=== PATIENT | male | born 1955 | race Caucasian/White ===

== ENCOUNTER → 2018-02-25 | Outpatient (CLI) | payer BC ==
--- NOTE | 2018-02-25 17:16 | CONS ---
CONSULTATION Consultation note for sleep apnea. HISTORY: 62-year-old male patient diagnosed having obstructive sleep apnea through a Sleep Center in [place], [place] and the patient was given a CPAP machine. The patient is coming in for re-evaluation. The patient treatment itself has become suboptimal as the patient is feeling fatigued and tired and he has snoring at night despite his CPAP therapy. I checked his machine and the patient has older generation REM Star Plus M CPAP unit that was given to him back in 2009. He has been utilizing an AirFit P10 nose pillow medium size. His current CPAP pressure is at 13.5 cm of water. His current [place] score is 9. He denies having any significant weight gain over the past 1 year. He is currently weighing around 345 pounds. I do not have documentation on the original sleep study. I am going to request this from the sleep center and from his primary care physician from [place], [place]. Obviously the patient needs another CPAP titration to make adjustment on CPAP pressure and update his CPAP machine. If the originally sleep study is not available, he will need also a baseline HST to document presence of sleep apnea. Note that he is waking up tired. He has trouble paying attention and falling asleep during the day. He goes to bed around 10 to 11:00 p.m. and gets out of bed around 8 to 9:00 am in the morning. He is averaging somewhere between 7-9 hours of sleep every night. He is currently retired. PAST MEDICAL HISTORY: 1. Obstructive sleep apnea details discussed above. 2. Previous history of left lower extremity DVT and pulmonary embolism. The patient had saddle pulmonary embolism and is on anticoagulation. 3. History of renal cell carcinoma with previous nephrectomy. 4. Obesity. PAST SURGICAL HISTORY: Includes right nephrectomy for cancer. Right knee surgery x2, ankle surgery, removal of benign mass from the sphenoid sinus, L2-L3 laminectomy, left hip replacement. SOCIAL HISTORY: The patient is a nonsmoker. No history of alcohol. No history of IV drugs. DRUG ALLERGIES: To SULFA, ATORVASTATIN AND SULFASALAZINE. OUTPATIENT MEDICATION LIST: Includes vitamin D, vitamin B12. He was on modafinil, which is currently on hold and he was given on as needed basis Modafinil for residual hypersomnia related to his obstructive sleep apnea. He is on Eliquis 5 mg twice a day. Cartia XT 180 mg p.o. daily and Prozac 40 mg p.o. daily. FAMILY HISTORY: Noncontributory. Negative for sleep apnea. REVIEW OF SYSTEMS: Chronic fatigue and sleepiness despite being on CPAP therapy and the patient has been treated with modafinil in the past. He has no insomnia, no choking or gasping for air. No nocturia. No grinding of the teeth. No sleepwalking and he has no dry mouth. No anxiety or panic attacks. No palpitation or heartburn. No anxiety. He has history of depression. His BP is 124/65, pulse 68, respirations 16, temperature 97.4 saturation 96% on room air. Height is 5 feet 11 inches, weight 315, neck size 20 inches and BMI is 42.9. GENERAL APPEARANCE: Calm, comfortable. No acute distress. Head is atraumatic, normocephalic. NECK: Supple. There is no JVD. No goiter or neck masses. He has got a Mallampati class IV. LUNGS: Diminished breath sounds bilaterally otherwise clear. HEART: Sounds regular rhythm. Normal S1, S2. No S3, S4. No murmurs. ABDOMEN: Soft, nontender. No organomegaly. EXTREMITIES: No edema. No cyanosis or clubbing at this point. SKIN: Negative for any wounds or ulceration. IMPRESSION: 1. Obstructive sleep apnea. The patient is coming in for re-evaluation. The baseline severity of his sleep breathing disorder is not known. Never the less, the patient has been treated with a CPAP pressure of 13.5 cm of water and his treatment has been suboptimal as the patient has significant residual hypersomnia and sleepiness. 2. Hypersomnia, [place] score of 9. 3. Obesity with a BMI of 42.9. 4. Deep venous thrombosis/pulmonary embolism on anticoagulation. 5. History of renal cell carcinoma with previous nephrectomy. PLAN: 1. Encourage further weight loss. 2. Obtain copies of his original polysomnogram. If not available will do an HST. 3. Will set up this patient for a CPAP titration during which the CPAP pressures and mask interface will be updated. 4. We will continue to follow and make further recommendations accordingly. MMODL / IJN: [id number] /
== END | disposition home or self-care (01) ==
LOC: SLEEP 11:36
PROVIDERS: ATTEND Internal Medicine Critical Care Medicine
DX: G47.33 Obstructive sleep apnea (adult) (pediatric) (principal); E66.9 Obesity, unspecified; I82.409 Acute embolism and thrombosis of unspecified deep veins of unspecified lower extremity; I26.99 Other pulmonary embolism without acute cor pulmonale; Z79.01 Long term (current) use of anticoagulants; Z85.528 Personal history of other malignant neoplasm of kidney; Z68.41 Body mass index [BMI] 40.0-44.9, adult; Z90.5 Acquired absence of kidney; Z98.890 Other specified postprocedural states; Z96.642 Presence of left artificial hip joint
CPT/HCPCS: 99211

== ENCOUNTER 2022-04-23 11:42 | Inpatient (IN) | payer MEDICARE ==
[2022-04-23 12:44] LABS: Basophils # (A) 0.1 k/uL (0-0.2); Basophils % (A) 1 %; Eosinophils # (A) 0.4 k/uL (0-0.7); Eosinophils % (A) 4 %; HCT 49.9 % (39.0-53.0); HGB 16.6 gm/dL (13.0-17.5); Lymphocytes # (A) 1.8 k/uL (1.0-4.8); Lymphocytes % (A) 16 %; MCH 31.1 pg (25.0-35.0); MCHC 33.2 g/dL (31.0-37.0); MCV 93.9 fL (80.0-100.0); Mean Platelet Volume 8.6; Monocytes # (A) 0.6 k/uL (0-1.0); Monocytes % (A) 6 %; Neutrophils # (A) 8.2 k/uL (1.3-7.7); Neutrophils % (A) 73 %; Platelet Count 206 k/uL (150-450); RBC 5.32 m/uL (4.30-5.90); RDW 12.7 % (11.5-15.5); WBC 11.2 k/uL (3.8-10.6)
--- NOTE | 2022-04-23 12:47 | XR ---
EXAMINATION TYPE: XR chest 2V DATE OF EXAM: 04/23/2022 12:43 PM COMPARISON: Chest radiograph 09/02/2017 TECHNIQUE: XR chest 2V. CLINICAL INDICATION:Male, 66 years old with history of difficulty breathing; FINDINGS: Lungs/Pleura: There is no evidence of pleural effusion, focal consolidation, or pneumothorax. Pulmonary vascularity: Unremarkable. Heart/mediastinum: Cardiomediastinal silhouette is unremarkable. Musculoskeletal: No acute osseous pathology. Mild degenerative changes of the visualized spine. IMPRESSION: No acute cardiopulmonary disease/process.
[2022-04-23 13:01] LABS: Albumin 4.4 g/dL (3.5-5.0); Calcium 9.2 mg/dL (8.4-10.2); Potassium 4.3 mmol/L (3.5-5.1); Total Bilirubin 1.2 mg/dL (0.2-1.3); Total Protein 7.4 g/dL (6.3-8.2)
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
[2022-04-23 13:14] LABS: Partial Thromboplastin Time 22.1 sec (22.0-30.0); Prothrombin Time 10.9 sec (9.0-12.0)
[2022-04-23] MEDS ORDERED: SODIUM CHLORIDE 0.9% 1,000 ML IV ONE ×2 (14:03→14:09)
[2022-04-23] MEDS ORDERED: HEPARIN SODIUM 1,000 UN/ML (10ML VL) IV ONE (14:03)
--- NOTE | 2022-04-23 14:06 | CT ---
EXAMINATION TYPE: CT chest angio for PE DATE OF EXAM: 04/23/2022 COMPARISON: 09/09/2017 HISTORY: Shortness of breath and elevated d-dimer. CT DLP: 981.3 mGycm Automated exposure control for dose reduction was used. CONTRAST: CT Chest for pulmonary embolism performed with with IV Contrast, patient injected with 80ml mL of Iso misty 370. FINDINGS: LUNGS: The lungs are grossly clear, there is no concerning parenchymal mass or nodule identified. T here is no pleural effusion or pneumothorax seen. The tracheobronchial tree is patent. MEDIASTINUM: There is filling defects within the distal margin of the right main pulmonary artery and secondary and distal branches. There is a filling defect within the very distal margin of the left p ulmonary artery and its secondary branches extending into the distal branches. The right ventricular to left ventricular ratio is greater than [address] right ventricular [address] rain. Heart size is normal. Aorta of normal caliber. OTHER: Hypertrophic and degenerative changes of the spine. Small hiatal hernia noted. IMPRESSION: Bilateral central pulmonary embolus extending into the secondary and distal branches. Correlate for r ight ventricular strain.
[2022-04-23] MEDS: HEPARIN SOD,PORK IN 0.45% NACL 25,000 UNIT in 0.45% NACL 1 250ML.BAG IV SCH (14:24)
[2022-04-23] MEDS: SODIUM CHLORIDE 0.9% 1,000 ML IV SCH (17:24)
[2022-04-23 18:22] LABS: Basophils # (A) 0.2 k/uL (0-0.2); Basophils % (A) 1 %; Eosinophils # (A) 0.4 k/uL (0-0.7); Eosinophils % (A) 3 %; HGB 17.4 gm/dL (13.0-17.5); Lymphocytes # (A) 2.8 k/uL (1.0-4.8); Lymphocytes % (A) 22 %; MCH 31.8 pg (25.0-35.0); MCHC 33.5 g/dL (31.0-37.0); MCV 94.9 fL (80.0-100.0); Mean Platelet Volume 8.7; Monocytes # (A) 0.8 k/uL (0-1.0); Monocytes % (A) 7 %; Neutrophils # (A) 8.1 k/uL (1.3-7.7); Neutrophils % (A) 66 %; Platelet Count 223 k/uL (150-450); RBC 5.48 m/uL (4.30-5.90); RDW 12.8 % (11.5-15.5); WBC 12.4 k/uL (3.8-10.6)
[2022-04-23 18:25] LABS: INR 1.1 (<1.2); Prothrombin Time 11.6 sec (9.0-12.0)
[2022-04-23 18:29] LABS: Partial Thromboplastin Time 101.5 sec (22.0-30.0)
[2022-04-23 19:27] LABS: Calcium 9.2 mg/dL (8.4-10.2); Potassium 4.6 mmol/L (3.5-5.1)
--- NOTE | 2022-04-23 19:33 | CONS ---
CONSULTATION This is a 66-year-old gentleman with a known history of pulmonary embolism in 2017 when he was also diagnosed with a renal cell cancer. He has hypertension, hyperlipidemia, but no obstructive CAD based on a cardiac cath nearly 8 to 10 years ago. He has obstructive sleep apnea; wears a CPAP. There is a question of atrial fibrillation, although he is not on any anticoagulant agents. He also has type 2 diabetes and hypertension. He came into the hospital with a history of about nearly 5 to 7 days of having shortness of breath with mild activity. His D-dimer was elevated and CT angio revealed evidence of pulmonary embolism, bilateral, and also had strain pattern. Patient is hemodynamically stable. This appears to be a submassive pulmonary embolism with stable hemodynamic status. Patient has been started on IV heparin. He is resting comfortably without symptoms. Room-air O2 saturation is 94%. PAST MEDICAL HISTORY: 1. History of renal cell cancer, status post right nephrectomy. 2. History of pulmonary embolism in 2017 when he was diagnosed with renal cell cancer. 3. No obstructive CAD based on a cardiac cath. 4. Hypertension. 5. Hyperlipidemia. 6. Type 2 diabetes. MEDICATIONS: Medications at home include diltiazem 180 mg long-acting, Provigil, Farxiga and lisinopril. PHYSICAL EXAMINATION: On examination, blood pressure is 130/70, pulse rate is about 70 per minute, regular. HEENT unremarkable. Fundus was not examined by me. Neck is supple. JVD is 1 cm. There is no carotid bruit. Heart exam reveals S1, S2 without significant rub, murmur or gallop. Lungs are clear. Abdomen is soft, nontender. Lower extremities reveal bilateral varicose veins, mild edema, but palpable pulses. Central nervous system grossly no focal deficits. EKG revealed sinus mechanism, heart rate 79 beats per minute. There is leftward axis with an incomplete right bundle branch block pattern. No acute changes. IMPRESSION: 1. Acute pulmonary embolism with shortness of breath but submassive, hemodynamically stable. 2. History of renal cell cancer, status post right-sided nephrectomy in the past. 3. Hypertension. 4. Obstructive sleep apnea; wears a CPAP. RECOMMENDATIONS: I am recommending that we continue IV heparin, perform echocardiogram. I will place him on oxygen, 75 mL normal saline. Will perform tPA infusion with ultrasound catheter treatment with EKOS device tomorrow morning. Discussed my thoughts in detail with the patient and his . They understand and wish to proceed. ALFREDITO / ERICN: [id number] /
[2022-04-23 19:56] LABS: Glucose,Whole Blood 119 mg/dL (70-110)
[2022-04-24] MEDS: HEPARIN SOD,PORK IN 0.45% NACL 25,000 UNIT in 0.45% NACL 1 250ML.BAG IV SCH ×5 (02:38→10:01)
[2022-04-24 03:39] LABS: HCT 49.7 % (39.0-53.0); HGB 15.8 gm/dL (13.0-17.5); MCH 30.6 pg (25.0-35.0); MCHC 31.8 g/dL (31.0-37.0); MCV 96.2 fL (80.0-100.0); Mean Platelet Volume 8.4; Platelet Count 200 k/uL (150-450); RBC 5.17 m/uL (4.30-5.90); RDW 13.2 % (11.5-15.5); WBC 11.2 k/uL (3.8-10.6)
[2022-04-24 04:37] LABS: Calcium 8.4 mg/dL (8.4-10.2); Potassium 4.7 mmol/L (3.5-5.1)
[2022-04-24] MEDS ORDERED: LIDOCAINE 1% INJ 10MG/ML (30 ML VIAL-PF) SQ ONE (07:20)
[2022-04-24] MEDS ORDERED: MIDAZOLAM 2 MG/2 ML VIAL IV ONE (07:20)
[2022-04-24] MEDS ORDERED: fentaNYL (PF) 50 MCG/ML 2 ML AMP ONE (07:24)
[2022-04-24] MEDS ORDERED: fentaNYL (PF) 50 MCG/ML 2 ML AMP IV ONE (07:26)
[2022-04-24] MEDS ORDERED: SODIUM CHLORIDE 0.9% 1,000 ML IV SCH ×2 (07:30)
[2022-04-24] MEDS ORDERED: ALTEPLASE 10 MG in SODIUM CHLORIDE 0.9% 90 ML IV ONE (07:30)
[2022-04-24] MEDS ORDERED: IV FLUID CONTINUATION 800 ML IV ONE (07:34)
[2022-04-24 07:42] LABS: O2 Sat Blood Gas 66.9 %
[2022-04-24 08:01] LABS: O2 Sat Blood Gas 82.6 %
[2022-04-24] MEDS: SODIUM CHLORIDE 0.9% 1,000 ML IV SCH ×2 (08:30→16:18)
[2022-04-24] MEDS: ALTEPLASE 10 MG in SODIUM CHLORIDE 0.9% 90 ML IV ONE ×2 (08:30→10:03)
[2022-04-24] MEDS ORDERED: ACETAMINOPHEN TAB 325 MG TAB PO PRN (09:23)
[2022-04-24] MEDS: lisinopriL 10 MG TAB PO SCH (09:48)
[2022-04-24] MEDS: HYDROmorphone 0.5 MG/0.5 ML SYRINGE IVP PRN ×2 (09:48→16:14)
[2022-04-24] MEDS: FLUoxetine HCL 20 MG CAP PO SCH (09:50)
[2022-04-24 09:57] LABS: Basophils # (A) 0.1 k/uL (0-0.2); Basophils % (A) 1 %; Eosinophils # (A) 0.3 k/uL (0-0.7); Eosinophils % (A) 4 %; HCT 46.2 % (39.0-53.0); HGB 15.7 gm/dL (13.0-17.5); Lymphocytes % (A) 23 %; MCH 31.8 pg (25.0-35.0); MCV 93.4 fL (80.0-100.0); Mean Platelet Volume 8.5; Monocytes # (A) 0.5 k/uL (0-1.0); Monocytes % (A) 6 %; Neutrophils # (A) 5.5 k/uL (1.3-7.7); Neutrophils % (A) 65 %; Platelet Count 187 k/uL (150-450); RBC 4.95 m/uL (4.30-5.90); RDW 12.7 % (11.5-15.5); WBC 8.5 k/uL (3.8-10.6)
[2022-04-24] MEDS: DILTIAZEM CD 180 MG CAP.ER.24H PO SCH (09:58)
[2022-04-24 10:13] LABS: Calcium 8.4 mg/dL (8.4-10.2); Potassium 4.5 mmol/L (3.5-5.1)
--- NOTE | 2022-04-24 11:47 | P.CNPUL ---
History of Present Illness Consult date: 04/24/22 Requesting physician: Lala Wynne Reason for consult: dyspnea, hypoxemia, pulmonary embolism, pulmonary hypertension, abnormal CXR/CT Chief complaint: Shortness of breath. History of present illness: Pulmonary and critical care consultation dated 04/24/2022. This is a 66-year-old male who was seen in the emergency department, on April 23. The patient has a history of hypernephroma, status post nephrectomy, 2016, and a prior history of pulmonary embolism, associated with the kidney cancer. The patient presented with complaints of increasing shortness of breath about 2 or 3 days prior to admission to the emergency department. Also, his pulse oximeter was lower than normal, and shortness of breath was noted mostly on exertion. He denied any chest pain or palpitations. There is no fever chills cough or phlegm production. He also denied any trauma or swelling/pain to his lower extr emities. A CT angiogram apparently revealed evidence of pulmonary embolism, with right heart strain. This appears to be a unprovoked pulmonary embolism, and the patient's only known trigger, is that he is not particularly active. His kidney cancer is thought not to be active at this time. He has a history of atrial fibrillation, diabetes, hypertension, sleep apnea, and osteoarthritis. In addition, he has a previous history of hypernephroma, with previous nephrectomy. White count 8.5, hemoglobin 15.7, hematocrit 46.2, and platelet count 287,000. Sodium 135, potassium 4.5, chlorides 107, CO2 22, anion gap 6, BUN 19, creatinine 1.31. Chest x-ray initially was normal. CT angiogram revea led filling defects within the distal margin of the right main pulmonary artery and secondary and distal branches. There is a filling defect within the very distal margin of the left pulmonary artery and his secondary branches. There was evidence of right ventricular strain. The right ventricular to left ventricular ratio is greater than 1. The patient underwent EKOS this morning. He is currently resting comfortably in the intensive care unit. He is currently on 2 L nasal cannula. He is receiving IV heparin, TPA, and saline at 75 mL an hour. Review of Systems REVIEW OF SYSTEMS: CONSTITUTIONAL: [Negative.] NEUROLOGIC: [ Negative.] HEENT: [ Negative.] CARDIAC: [Negative.] PULMONARY: Shortness of breath. GI: [Negative.] : [Negative.] RHEUMATOLOGIC: [ Negative.] IMMUNOLOGIC: [ Negative.] ENDOCRINE: [Negative. 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 History of Any Multi-Drug Resistant Organisms: None Reported Past Surgical History: Back Surgery, Heart Catheterization, Joint Replacement, Orthopedic Surgery, Tonsillectomy Additional Past Surgical History / Comment(s): R nephrectomy, bilateral total hip arthroplasties, R knee repair with hardware, R ankle surgery to release tendons, R thumb repair d/t injury, sinus surgery, hemorrhoidectomy. Past Anesthesia/Blood Transfusion Reactions: No Reported Reaction Smoking Status: Never smoker - Past Family History Mother Family Medical History: Cancer, Osteoarthritis (OA) Additional Family Medical History / Comment(s): breast cancer-survivor Father Family Medical History: Diabetes Mellitus, Hypertension, Renal Disease Additional Family Medical History / Comment(s): kidney transplant 1983 and lived till 2015 Medications and Allergies Home Medications Medication Instructions Recorded Confirmed Type FLUoxetine HCL [PROzac] 40 mg PO DAILY 09/09/17 04/23/22 History dilTIAZem HCL [Diltiazem 24Hr ER] 180 mg PO DAILY 09/09/17 04/23/22 History modafiniL [Provigil] 400 mg PO DAILY PRN 09/09/17 04/23/22 History Cholecalciferol (Vitamin D3) 125 mcg PO DAILY 04/23/22 04/23/22 History [Vitamin D3 (125 MCG = 5,000 IU)] Dapagliflozin Propanediol [Farxiga] 2.5 mg PO DAILY 04/23/22 04/23/22 History lisinopriL [Zestril] 10 mg PO DAILY 04/23/22 04/23/22 History Allergies Allergy/AdvReac Type Severity Reaction Status Date / Time Sulfa (Sulfonamide Allergy Unknown Verified 04/23/22 14:07 Antibiotics) Childhood atorvastatin AdvReac Muscle pain Verified 04/23/22 14:07 [id number] Reductase AdvReac Muscle pain Verified 04/23/22 14:07 Inhibitor Physical Exam Osteopathic Statement: *. No significant issues noted on an osteopathic str uctural exam other than those noted in the History and Physical/Consult. Vitals: Vital Signs Temp Pulse Resp BP BP Pulse Ox 04/24/22 11:00 70 12 110/72 94 L 04/24/22 10:00 67 13 126/77 93 L 04/24/22 09:38 97.6 F 17 126/77 04/24/22 09:23 98.1 F 16 128/76 04/23/22 20:00 16 135/79 95 04/23/22 19:41 98.7 F 64 18 139/83 96 04/23/22 18:30 98.1 F 77 18 143/98 98 04/23/22 16:47 73 19 96 04/23/22 15:32 41 L 18 131/70 95 04/23/22 14:08 65 18 105/68 94 L 04/23/22 12:19 85 18 120/77 95 04/23/22 11:53 97.9 F 85 18 135/63 97 Intake and Output 04/23/22 04/24/22 04/24/22 22:59 06:59 14:59 Intake Total 246.217 732.111 640.0 Output Total 350 850 0 Balance -103.783 -117.889 640.0 Intake: IV 150 600 450 Sodium Chloride 0.9% 1, 150 600 150 000 ml @ 75 mls/hr IV . [id number] [facility] Rx#:[id number] Intake, IV Titration 96.217 132.111 190.0 Amount Alteplase 10 mg In Sodium 20 Chloride 0.9% 90 ml @ 1 MG/HR 10 mls/hr IV .Q10H [facility] Rx#:[id number] Alteplase 10 mg In Sodium 20 Chloride 0.9% 90 ml @ 1 MG/HR 10 mls/hr IV .Q10H [facility] Rx#:[id number] Heparin Sod,Pork in 0.45% 96.217 132.111 NaCl 25,000 unit In 0.45 % NaCl 1 250ml.bag @ 16. 902 UNITS/KG/HR 23 mls/hr IV .[id number] [facility] Rx#: [id number] Heparin Sod,Pork in 0.45% 5.0 NaCl 25,000 unit In 0.45 % NaCl 1 250ml.bag @ 2.5 mls/hr IV .Q24H [facility] Rx#: [id number] Heparin Sod,Pork in 0.45% 5.0 NaCl 25,000 unit In 0.45 % NaCl 1 250ml.bag @ 2.5 mls/hr IV .Q24H [facility] Rx#: [id number] Sodium Chloride 0.9% 1, 70 000 ml @ 35 mls/hr IV . Q24H [facility] Rx#:[id number] Sodium Chloride 0.9% 1, 70 000 ml @ 35 mls/hr IV . Q24H [facility] Rx#:[id number] Output: Urine 350 850 0 Other: Weight 141.8 kg 140.5 kg No acute distress, oriented 3. Currently on nasal O2 at 2 L. No respiratory distress, conversational dyspnea, or use of accessory muscles. HEENT examination is grossly unremarkable. Neck supple. Full range of motion. No adenopathy thyromegaly or neck vein distention. Cardiovascular examination reveals regular rhythm rate. S1-S2 normal. No S3 or S4. No discernible murmur noted. Heart rate 70 bpm. Lungs reveal clear breath sounds. Breath sounds are equal bilaterally. No adventitious lung sounds including wheezes rhonchi or crackles. 2 L saturation is 94%. Abdomen soft bowel sounds are heard. No masses or tenderness. Extremities are intact. No cyanosis clubbing or edema. Skin is without rash or lesion. Neurologic examination is brief but nonfocal. Results - Laboratory Findings CBC and BMP: 04/24/22 09:43 04/24/22 09:43 PT/INR, D-dimer PT 11.6 sec (9.0-12.0) 04/23/22 17:38 INR 1.1 (<1.2) 04/23/22 17:38 D-Dimer 6.61 mg/L FEU (<0.60) H 04/23/22 12:31 Abnormal lab findings: Abnormal Labs 04/23/22 04/23/22 04/23/22 12:31 12:31 12:31 WBC 11.2 H Neutrophils # 8.2 H APTT Fibrinogen D-Dimer 6.61 H Sodium Carbon Dioxide 20 L BUN 24 H Creatinine 1.59 H Glucose 165 H POC Glucose (mg/dL) 04/23/22 04/23/22 04/23/22 17:38 17:38 17:38 WBC 12.4 H Neutrophils # 8.1 H APTT 101.5 H* Fibrinogen 545 H D-Dimer Sodium Carbon Dioxide BUN 22 H Creatinine 1.53 H Glucose POC Glucose (mg/dL) 04/23/22 04/24/22 04/24/22 19:54 03:22 03:22 WBC 11.2 H Neutrophils # APTT 48.1 H Fibrinogen D-Dimer Sodium Carbon Dioxide BUN Creatinine Glucose POC Glucose (mg/dL) 119 H 04/24/22 04/24/22 03:22 09:43 WBC Neutrophils # APTT Fibrinogen D-Dimer Sodium 134 L 135 L Carbon Dioxide 20 L BUN 21 H Creatinine 1.41 H 1.31 H Glucose 114 H 122 H POC Glucose (mg/dL) - Diagnostic Findings Chest x-ray: image reviewed CT scan - chest: image reviewed Assessment and Plan Assessment: Acute bilateral pulmonary embolism, with right heart strain, status post EKOS on 04/24/2022. Prior history of pulmonary embolism, back in 2017, associated with the patient's diagnosis of hypernephroma. History of hypernephroma, status post nephrectomy. History of atrial fibrillation. History of diabetes mellitus. History of hypertension. History of osteoarthritis. History of obstructive sleep apnea syndrome. Plan: Plan dated 04/24/2022. The patient appears to have had a unprovoked blood clot. For that reason, the patient should be treated for at least 6 months. In addition, I think some sort of body scan would be appropriate, whether be a computed tomography scan of the chest abdomen and pelvis, or a PET/CT fusion study. The patient does have a prior history of renal cell carcinoma, status post nephrectomy. Additional r ecommendations and suggestions are forthcoming. We will continue to follow. We will see the patient in the outpatient setting. He will need a repeat CT angiogram in about 8-10 weeks. Prognosis is guarded. Time with Patient: Greater than 30
--- NOTE | 2022-04-24 12:50 | CC ---
CARDIAC CATHETERIZATION REPORT PROCEDURE: 1. Right heart catheterization. 2. EKOS catheter placement in right and left pulmonary artery. CLINICAL INFORMATION: Mr. Brigido Hernández is a 66-year-old morbidly obese patient with obstructive sleep apnea, CPAP and previous nephrectomy for renal cell cancer. He had a pulmonary embolism in 2017, which was related to his renal cell cancer, but subsequently he came in with about a weeks worth of shortness of breath, was found to have pulmonary embolism bilaterally with a right ventricular strain. He was placed on a heparin drip last night, advised an ECOS procedure this morning and brought in for the procedure electively. PROCEDURE NOTE: Under local anesthesia and strict aseptic precautions, 2 6-Liberian introducer was placed in the right femoral vein. Through the left/lateral sheath, I advanced and positioned a balloon-tipped floatation catheter. I checked the right-sided pressures. Subsequently, using a victory long wire, I exchanged this catheter for an ECOS catheter. I then used the same right heart catheter from the right sided medial sheath in the femoral vein and advanced and positioned it in the left pulmonary artery. I exchanged over a Victory wire and then advanced and positioned the ECOS catheter. Through the ECOS catheter, the ultrasound catheter was also advanced and position. Good position was noted. The sheaths were sutured. The patient will have TPA infusion for 6 hours through both the ECOS catheters and will be sent to the ICU. The patient tolerated procedure well without complication. The right atrial pressures were: RA pressure was 8 mmHg. RV pressure was 52/8. The PA pressure was 52/21 with a mean of 31. Wedge pressure was 20 mmHg. Patient tolerated procedure well without complications. Details were discussed with the patient and family. Moderate conscious sedation time was 57 minutes. Oxygen saturation, hemodynamics and EKG were monitored closely. MMODL / IJN: [id number] / MTDD
--- NOTE | 2022-04-24 14:16 | PN ---
PROGRESS NOTE Mr. Hernández had a pulmonary embolism. I did ECOS catheter with bilateral catheter placement and infusion of tPA. He is doing well. His right groin is clean and dry. We will perform echo tomorrow morning. Continue current medications. Will seek Pulmonary evaluation. ALFREDITO / IJN: [id number] /
--- NOTE | 2022-04-24 14:46 | P.HPIM ---
History of Present Illness H&P Date: 04/24/22 This is a 66-year-old male who was recently presenting to the emergency department the past medical history of pulmonary embolism back in 2017 and not currently on any anticoagulation. Patient was having some increasing shortness of breath over the last few days with minimal exertion and continue to progress and came to the emergency department for further evaluation. Patient was on room air and denying any chest pain or palpitations. Patient does have a past medical history of atrial fibrillation, diabetes mellitus, hypertension, osteoarthritis, sleep apnea with a CPAP machine and renal cancer with removal of the right kidney in 2017. Patient reports most of his care has been out of [facility] and follows with Dr. Samia Burrell. Patient had CT of the chest which shows bilateral pulmonary embolisms in the secondary branches and patient was initiated on heparin drip and given a liter of fluid as patient had IV contrast and is only one kidney. There was concern for right ventricular strain on CT. Patient was admitted with intentions of EKOS to the ICU for close monitoring. Chest x-ray on admission showed no acute cardiopulmonary process with no evidence of pleural effusion or focal consolidation or pneumothorax noted. EKG showed sinus rhythm with a heart rate of 79 Review Of Systems: Constitutional: No fever, no chills, no night sweats. No weight change. No weakness, fatigue or lethargy. No daytime sleepiness. EENT: No headache. No blurred vision or double vision, no loss of vision. No loss of Hearing, no ringing in the ears, no dizziness. No nasal drainage or congestion. No epistaxis. No sore throat. Lungs: No shortness of breath, cough, no sputum production. No wheezing. Cardiovascular: No chest pain, no lower extremity edema. No palpitations. No paroxysmal nocturnal dyspnea. No orthopnea. No lightheadedness or dizziness. No syncopal episodes. Abdominal: No abdominal pain. No nausea, vomiting. No diarrhea. No constipation. No bloody or tarry stools.. No loss of appetite. Genitourinary: No dysuria, increased frequency, urgency. No urinary retention. Musculoskeletal: No myalgias. No muscle weakness, no gait dysfunction, no frequent falls. No back pain. No neck pain. Integumentary: No wounds, no lesions. No rash or pruritus. No unusual bruising. No change in hair or nails. Neurologic: No aphasia. No facial droop. No change in mentation. No head injury. No headache. No paralysis. No paresthesia. Psychiatric: No depression. No anxiety. No mood swings. Endocrine: No abnormal blood sugars. No weight change. No excessive sweating or thirst. No cold intolerance. PHYSICAL EXAMINATION: GENERAL: The patient is alert and oriented x4, Well developed, well nourished. HEENT: Pupils are round and equally reacting to light. EOMI. does have scleral icterus. No conjunctival pallor. Normocephalic, atraumatic. No pharyngeal erythema. No thyromegaly. CARDIOVASCULAR: S1 and S2 muffled PULMONARY: diminished breath sounds bilaterally with no wheezing or rhonchi noted. ABDOMEN: soft. Nontender on exam. obese. non-distended, normoactive bowel sounds. No palpable organomegaly. MUSCULOSKELETAL: No joint swelling or deformity. EXTREMITIES: No cyanosis, clubbing, or pedal edema. Right hip surgical dressing is intact NEUROLOGICAL: Gross neurological examination did not reveal any focal deficits. Diffuse weakness SKIN: No rashes. Assessment: Shortness of breath secondary to bilateral pulmonary embolism found on CTA with evidence of right heart strain Past medical history of renal cell cancer status post right nephrectomy in 2017 at [facility] History of pulmonary embolism in 2017 and not maintained on any anticoagulation Hypertension Hyperlipidemia Morbid obesity with a BMI of 43.2 Diabetes mellitus type 2 History of paroxysmal atrial fibrillation Sleep apnea and uses a CPAP at night Chronic back pain GI prophylaxis DVT prophylaxis Full code Plan: Recommend to continue with current medications and management as patient is undergoing EKOS for right heart strain noted on CTA with bilateral pulmonary embolisms in the secondary branches. Recommend ICU management with telemetry monitoring. Patient is currently maintained on 2 L via nasal cannula and denies any worsening shortness of breath and will wean FiO2 as tolerated. Patient does have a past medical history of right renal carcinoma and had a kidney removed in 2017 at [facility] and most recent creatinine back in 2017 was 1.2 and mildly elevated on admission and did receive a bolus after having contrast due to the CT. Recommend repeat labs and close monitoring of kidney functions as patient only has one solitary kidney. Patient also with diabetes and will add Accu- Cheks before meals and at bedtime and sliding scale and monitor closely. Cardiology following and pulmonary consulted and will await and appreciate input and recommendations. The impression and plan of care has been dictated by Johanna Sinclair, nurse practitioner as directed. Dr. Jaja MD I have performed a history and examination and MDM of this patient, discussed the same with the dictator, and agree with the dictator's assessment and plan as written ,documented as a scribe. Based on total visit time, I have performed more than 50% of the visit. Any additional findings or plans will be noted. Past Medical History Past Medical History: Atrial Fibrillation, Blood Disorder, Cancer, Diabetes Mellitus, Hypertension, Osteoarthritis (OA), Pulmonary Embolus (PE), Sleep Apnea/CPAP/BIPAP Additional Past Medical History / Comment(s): 2017 massive saddle PE, R renal cancer with surgery, paroxysmal afib, hemachromatosis, DINH/cpap used, bulging discs in back, chronic cervical pain. History of Any Multi-Drug Resistant Organisms: None Reported Past Surgical History: Back Surgery, Heart Catheterization, Joint Replacement, Orthopedic Surgery, Tonsillectomy Additional Past Surgical History / Comment(s): R nephrectomy, bilateral total hip arthroplasties, R knee repair with hardware, R ankle surgery to release tendons, R thumb repair d/t injury, sinus surgery, hemorrhoidectomy. Past Anesthesia/Blood Transfusion Reactions: No Reported Reaction Smoking Status: Never smoker - Past Family History Mother Family Medical History: Cancer, Osteoarthritis (OA) Additional Family Medical History / Comment(s): breast cancer-survivor Father Family Medical History: Diabetes Mellitus, Hypertension, Renal Disease Additional Family Medical History / Comment(s): kidney transplant 1983 and lived till 2015 Medications and Allergies Home Medications Medication Instructions Recorded Confirmed Type FLUoxetine HCL [PROzac] 40 mg PO DAILY 09/09/17 04/23/22 History dilTIAZem HCL [Diltiazem 24Hr ER] 180 mg PO DAILY 09/09/17 04/23/22 History modafiniL [Provigil] 400 mg PO DAILY PRN 09/09/17 04/23/22 History Cholecalciferol (Vitamin D3) 125 mcg PO DAILY 04/23/22 04/23/22 History [Vitamin D3 (125 MCG = 5,000 IU)] Dapagliflozin Propanediol [Farxiga] 2.5 mg PO DAILY 04/23/22 04/23/22 History lisinopriL [Zestril] 10 mg PO DAILY 04/23/22 04/23/22 History Allergies Allergy/AdvReac Type Severity Reaction Status Date / Time Sulfa (Sulfonamide Allergy Unknown Verified 04/23/22 14:07 Antibiotics) Childhood atorvastatin AdvReac Muscle pain Verified 04/23/22 14:07 Ltrettc-IDD-BnD Reductase AdvReac Muscle pain Verified 04/23/22 14:07 Inhibitor Physical Exam Vitals: Vital Signs Temp Pulse Resp BP BP Pulse Ox 04/23/22 20:00 16 135/79 95 04/23/22 19:41 98.7 F 64 18 139/83 96 04/23/22 18:30 98.1 F 77 18 143/98 98 04/23/22 16:47 73 19 96 04/23/22 15:32 41 L 18 131/70 95 04/23/22 14:08 65 18 105/68 94 L 04/23/22 12:19 85 18 120/77 95 04/23/22 11:53 97.9 F 85 18 135/63 97 Intake and Output 04/23/22 04/24/22 04/24/22 22:59 06:59 14:59 Intake Total 246.217 732.111 300 Output Total 350 850 Balance -103.783 -117.889 300 Intake: IV 150 600 300 Sodium Chloride 0.9% 1, 150 600 000 ml @ 75 mls/hr IV . [id number] [facility] Rx#:[id number] Intake, IV Titration 96.217 132.111 Amount Heparin Sod,Pork in 0.45% 96.217 132.111 NaCl 25,000 unit In 0.45 % NaCl 1 250ml.bag @ 16. 902 UNITS/KG/HR 23 mls/hr IV .[id number] [facility] Rx#: [id number] Output: Urine 350 850 Other: Weight 141.8 kg 140.5 kg Results CBC & Chem 7: 04/24/22 09:43 04/24/22 09:43 Labs: Abnormal Lab Results - Last 24 Hours (Table) 04/23/22 04/23/22 04/23/22 Range/Units 12:31 12:31 12:31 WBC 11.2 H (3.8-10.6) k/uL Neutrophils # 8.2 H (1.3-7.7) k/uL APTT (22.0-30.0) sec Fibrinogen (200-500) mg/dL D-Dimer 6.61 H (<0.60) mg/L FEU Sodium (137-145) mmol/L Carbon Dioxide 20 L (22-30) mmol/L BUN 24 H (9-20) mg/dL Creatinine 1.59 H (0.66-1.25) mg/dL Glucose 165 H (74-99) mg/dL POC Glucose (mg/dL) (70-110) mg/dL 04/23/22 04/23/22 04/23/22 Range/Units 17:38 17:38 17:38 WBC 12.4 H (3.8-10.6) k/uL Neutrophils # 8.1 H (1.3-7.7) k/uL APTT 101.5 H* (22.0-30.0) sec Fibrinogen 545 H (200-500) mg/dL D-Dimer (<0.60) mg/L FEU Sodium (137-145) mmol/L Carbon Dioxide (22-30) mmol/L BUN 22 H (9-20) mg/dL Creatinine 1.53 H (0.66-1.25) mg/dL Glucose (74-99) mg/dL POC Glucose (mg/dL) (70-110) mg/dL 04/23/22 04/24/22 04/24/22 Range/Units 19:54 03:22 03:22 WBC 11.2 H (3.8-10.6) k/uL Neutrophils # (1.3-7.7) k/uL APTT 48.1 H (22.0-30.0) sec Fibrinogen (200-500) mg/dL D-Dimer (<0.60) mg/L FEU Sodium (137-145) mmol/L Carbon Dioxide (22-30) mmol/L BUN (9-20) mg/dL Creatinine (0.66-1.25) mg/dL Glucose (74-99) mg/dL POC Glucose (mg/dL) 119 H (70-110) mg/dL 04/24/22 Range/Units 03:22 WBC (3.8-10.6) k/uL Neutrophils # (1.3-7.7) k/uL APTT (22.0-30.0) sec Fibrinogen (200-500) mg/dL D-Dimer (<0.60) mg/L FEU Sodium 134 L (137-145) mmol/L Carbon Dioxide 20 L (22-30) mmol/L BUN 21 H (9-20) mg/dL Creatinine 1.41 H (0.66-1.25) mg/dL Glucose 114 H (74-99) mg/dL POC Glucose (mg/dL) (70-110) mg/dL Thrombosis Risk Factor Assmnt - Choose All That Apply Any of the Below Risk Factors Present?: Yes Each Factor Represents 1 point: Obesity (BMI >25) Other Risk Factors: Yes Each Risk Factor Represents 2 Points: Age 61-74 years Each Risk Factor Represents 3 Points: History of DVT/PE Other congenital or acquired thrombophilia - If yes, enter type in comment: No Thrombosis Risk Factor Assessment Total Risk Factor Score: 6 Thrombosis Risk Factor Assessment Level: High Risk
[2022-04-24 15:47] LABS: Calcium 8.5 mg/dL (8.4-10.2); Potassium 4.7 mmol/L (3.5-5.1)
[2022-04-24 16:19] LABS: Glucose,Whole Blood 75 mg/dL (70-110)
--- NOTE | 2022-04-24 16:33 | P.CONS ---
History of Present Illness - Reason for Consult Consult date: 04/24/22 unprovoked PE Requesting physician: Conchis Muhammad - Chief Complaint SOB, ELIZABETH - History of Present Illness Mr. Hernández is a very pleasant man we have been asked to see regarding an unprovoked PE, questioning need for long-term anticoagulation. He was initially seen in consult 09/10/17. At that time he presented with changes in his breathing x 2 weeks, progressed to the point where he could not exert himself even to go from sitting to standing without having trouble breathing. No provoking factors were identified. No personal or family history of blood clots. CTA revealed bilateral PE, very extensive, concerns for heart strain. He was also found to have a left lower extremity DVT. A right renal mass found incidentally. He was transferred to [facility] for thrombolytics. He was on eliquis for 6 months. He states that about 2 months after this he had a nephrectomy, no chemotherapy or radiation was needed. Patient follows with Dr. Logan out of [facility]. He is due for follow-up next month. Patient noticed shortness of breath last 5-7 days, this progressed and was worse with activity, he noted his oxygen saturations were in the low 80s. Came into the hospital to be evaluated, CT showing a PE central, on the right extensive to the secondary and distal branches. He is currently receiving thrombolytics plans for EKOS in AM or later today. He denies any bleeding, he states that his shortness of breath is improved. He denied any provoking factors. He states he is due to see his Oncologist next month with scans planned for next month. 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 History of Any Multi-Drug Resistant Organisms: None Reported Past Surgical History: Back Surgery, Heart Catheterization, Joint Replacement, Orthopedic Surgery, Tonsillectomy Additional Past Surgical History / Comment(s): R nephrectomy, bilateral total hip arthroplasties, R knee repair with hardware, R ankle surgery to release tendons, R thumb repair d/t injury, sinus surgery, hemorrhoidectomy. Past Anesthesia/Blood Transfusion Reactions: No Reported Reaction Past Psychological History: No Psychological Hx Reported Smoking Status: Never smoker Past Alcohol Use History: None Reported Past Drug Use History: None Reported - Past Family History Mother Family Medical History: Cancer, Osteoarthritis (OA) Additional Family Medical History / Comment(s): breast cancer-survivor Father Family Medical History: Diabetes Mellitus, Hypertension, Renal Disease Additional Family Medical History / Comment(s): kidney transplant 1983 and lived till 2015 Medications and Allergies Home Medications Medication Instructions Recorded Confirmed Type FLUoxetine HCL [PROzac] 40 mg PO DAILY 09/09/17 04/23/22 History dilTIAZem HCL [Diltiazem 24Hr ER] 180 mg PO DAILY 09/09/17 04/23/22 History modafiniL [Provigil] 400 mg PO DAILY PRN 09/09/17 04/23/22 History Cholecalciferol (Vitamin D3) 125 mcg PO DAILY 04/23/22 04/23/22 History [Vitamin D3 (125 MCG = 5,000 IU)] Dapagliflozin Propanediol [Farxiga] 2.5 mg PO DAILY 04/23/22 04/23/22 History lisinopriL [Zestril] 10 mg PO DAILY 04/23/22 04/23/22 History Allergies Allergy/AdvReac Type Severity Reaction Status Date / Time Sulfa (Sulfonamide Allergy Unknown Verified 04/23/22 14:07 Antibiotics) Childhood atorvastatin AdvReac Muscle pain Verified 04/23/22 14:07 [id number] Reductase AdvReac Muscle pain Verified 04/23/22 14:07 Inhibitor Physical Exam Vitals: Vital Signs Temp Pulse Resp BP BP Pulse Ox 04/24/22 11:00 70 12 110/72 94 L 04/24/22 10:00 67 13 126/77 93 L 04/24/22 09:38 97.6 F 17 126/77 04/24/22 09:23 98.1 F 16 128/76 04/23/22 20:00 16 135/79 95 04/23/22 19:41 98.7 F 64 18 139/83 96 07/11/22 18:30 98.1 F 77 18 143/98 98 04/23/22 16:47 73 19 96 04/23/22 15:32 41 L 18 131/70 95 04/23/22 14:08 65 18 105/68 94 L 04/23/22 12:19 85 18 120/77 95 Intake and Output 04/23/22 04/24/22 04/24/22 22:59 06:59 14:59 Intake Total 246.217 732.111 810.0 Output Total 350 850 475 Balance -103.783 -117.889 335.0 Intake: IV 150 600 525 Sodium Chloride 0.9% 1, 150 600 225 000 ml @ 75 mls/hr IV . [id number] [facility] Rx#:[id number] Intake, IV Titration 96.217 132.111 285.0 Amount Alteplase 10 mg In Sodium 30 Chloride 0.9% 90 ml @ 1 MG/HR 10 mls/hr IV .Q10H [facility] Rx#:[id number] Alteplase 10 mg In Sodium 30 Chloride 0.9% 90 ml @ 1 MG/HR 10 mls/hr IV .Q10H [facility] Rx#:[id number] Heparin Sod,Pork in 0.45% 96.217 132.111 NaCl 25,000 unit In 0.45 % NaCl 1 250ml.bag @ 16. 902 UNITS/KG/HR 23 mls/hr IV .[id number] [facility] Rx#: [id number] Heparin Sod,Pork in 0.45% 7.5 NaCl 25,000 unit In 0.45 % NaCl 1 250ml.bag @ 2.5 mls/hr IV .Q24H [facility] Rx#: [id number] Heparin Sod,Pork in 0.45% 7.5 NaCl 25,000 unit In 0.45 % NaCl 1 250ml.bag @ 2.5 mls/hr IV .Q24H [facility] Rx#: [id number] Sodium Chloride 0.9% 1, 105 000 ml @ 35 mls/hr IV . Q24H [facility] Rx#:[id number] Sodium Chloride 0.9% 1, 105 000 ml @ 35 mls/hr IV . Q24H [facility] Rx#:[id number] Output: Urine 350 850 475 Other: Weight 141.8 kg 140.5 kg - Constitutional General appearance: cooperative, morbidly obese, no acute distress - EENT Eyes: anicteric sclerae, EOMI ENT: hearing grossly normal, normal oropharynx - Neck Neck: no lymphadenopathy - Respiratory Respiratory: bilateral: CTA - Cardiovascular Rhythm: regular Heart sounds: normal: S1, S2 Abnormal Heart Sounds: no systolic murmur, no diastolic murmur, no rub, no S3 Gallop, no S4 Gallop, no click, no other leg Peripheral Edema: bilateral: None - Gastrointestinal General gastrointestinal: no absent bowel sounds, no decreased bowel sounds, no distended, no hepatomegaly, no hyperactive bowel sounds, normal bowel sounds, no organomegaly, no rigid, no scaphoid, soft, no splenomegaly, no tenderness, no umbilical hernia, no ventral hernia - Integumentary Integumentary: normal - Neurologic Neurologic: CNII-XII intact - Musculoskeletal Musculoskeletal: strength equal bilaterally - Psychiatric Psychiatric: A&O x's 3, appropriate affect, intact judgment & insight Results CBC & Chem 7: 04/24/22 09:43 04/24/22 15:25 Labs: Abnormal Lab Results - Last 24 Hours (Table) 04/23/22 04/23/22 04/23/22 Range/Units 12:31 12:31 12:31 WBC 11.2 H (3.8-10.6) k/uL Neutrophils # 8.2 H (1.3-7.7) k/uL APTT (22.0-30.0) sec Fibrinogen (200-500) mg/dL D-Dimer 6.61 H (<0.60) mg/L FEU Sodium (137-145) mmol/L Carbon Dioxide 20 L (22-30) mmol/L BUN 24 H (9-20) mg/dL Creatinine 1.59 H (0.66-1.25) mg/dL Glucose 165 H (74-99) mg/dL POC Glucose (mg/dL) (70-110) mg/dL 04/23/22 04/23/22 04/23/22 Range/Units 17:38 17:38 17:38 WBC 12.4 H (3.8-10.6) k/uL Neutrophils # 8.1 H (1.3-7.7) k/uL APTT 101.5 H* (22.0-30.0) sec Fibrinogen 545 H (200-500) mg/dL D-Dimer (<0.60) mg/L FEU Sodium (137-145) mmol/L Carbon Dioxide (22-30) mmol/L BUN 22 H (9-20) mg/dL Creatinine 1.53 H (0.66-1.25) mg/dL Glucose (74-99) mg/dL POC Glucose (mg/dL) (70-110) mg/dL 04/23/22 04/24/22 04/24/22 Range/Units 19:54 03:22 03:22 WBC 11.2 H (3.8-10.6) k/uL Neutrophils # (1.3-7.7) k/uL APTT 48.1 H (22.0-30.0) sec Fibrinogen (200-500) mg/dL D-Dimer (<0.60) mg/L FEU Sodium (137-145) mmol/L Carbon Dioxide (22-30) mmol/L BUN (9-20) mg/dL Creatinine (0.66-1.25) mg/dL Glucose (74-99) mg/dL POC Glucose (mg/dL) 119 H (70-110) mg/dL 04/24/22 04/24/22 Range/Units 03:22 09:43 WBC (3.8-10.6) k/uL Neutrophils # (1.3-7.7) k/uL APTT (22.0-30.0) sec Fibrinogen (200-500) mg/dL D-Dimer (<0.60) mg/L FEU Sodium 134 L 135 L (137-145) mmol/L Carbon Dioxide 20 L (22-30) mmol/L BUN 21 H (9-20) mg/dL Creatinine 1.41 H 1.31 H (0.66-1.25) mg/dL Glucose 114 H 122 H (74-99) mg/dL POC Glucose (mg/dL) (70-110) mg/dL CT scan - chest: report reviewed Assessment and Plan (1) Pulmonary embolus Current Visit: Yes Status: Acute Priority: High Code(s): I26.99 - OTHER PULMONARY EMBOLISM WITHOUT ACUTE COR PULMONALE SNOMED Code(s): 07650750 (2) Renal cell adenocarcinoma Current Visit: No Status: Chronic Priority: Medium Code(s): C64.9 - MALIGNANT NEOPLASM OF UNSP KIDNEY, EXCEPT RENAL PELVIS SNOMED Code(s): 503948997 Plan: Unprovoked pulmonary embolism. Previously, patient had a kidney malignancy and presented with extensive pulmonary embolism. Again, patient has no provoking factors for this extensive PE. Concern is for occult malignancy/or recurrence. Physical exam is benign. Pt is reporting some dysphagia, denies ever having an EGD. He has had colonoscopy and reports prostate exams and PSA monitoring. Currently, he is receiving thrombolytics with plans for EKOS. Recommendation is for follow-up with Oncologist as soon as possible for evaluation and to move up PET/CT imaging studies for history of kidney cancer, unprovoked PE, worrisome for occult malignancy. Patient states previously being on eliquis without complications, prescription for the same is been sent to [facility]. Consult Case Management to verify co-pay. Time with Patient: Greater than 30
[2022-04-24] MEDS ORDERED: HEPARIN SODIUM 1,000 UN/ML (10ML VL) IV PRN (18:53)
[2022-04-24] MEDS ORDERED: HEPARIN SODIUM 1,000 UN/ML (10ML VL) IV ONE (18:53)
[2022-04-24] MEDS: NON FORMULARY DRUG (Dapagliflozin Propanediol [Farxiga] 5 MG Tablet) PO SCH (19:00)
[2022-04-24 20:17] LABS: Glucose,Whole Blood 115 mg/dL (70-110)
[2022-04-24] MEDS: INSULIN ASPART (NovoLOG) 100 UNIT/ML VIAL SQ SCH (20:30)
[2022-04-24] MEDS ORDERED: HEPARIN SOD,PORK IN 0.45% NACL 25,000 UNIT in 0.45% NACL 1 250ML.BAG IV SCH (21:00)
[2022-04-24 21:01] LABS: Prothrombin Time 11.2 sec (9.0-12.0)
[2022-04-25 03:26] LABS: Calcium 8.2 mg/dL (8.4-10.2); Potassium 4.6 mmol/L (3.5-5.1)
[2022-04-25 03:33] LABS: Basophils # (A) 0.1 k/uL (0-0.2); Basophils % (A) 1 %; Eosinophils # (A) 0.4 k/uL (0-0.7); Eosinophils % (A) 4 %; HCT 45.8 % (39.0-53.0); HGB 14.7 gm/dL (13.0-17.5); Lymphocytes # (A) 2.6 k/uL (1.0-4.8); Lymphocytes % (A) 27 %; MCV 93.6 fL (80.0-100.0); Mean Platelet Volume 8.5; Monocytes # (A) 0.6 k/uL (0-1.0); Monocytes % (A) 6 %; Neutrophils # (A) 5.9 k/uL (1.3-7.7); Neutrophils % (A) 61 %; Partial Thromboplastin Time 27.2 sec (22.0-30.0); Platelet Count 177 k/uL (150-450); Prothrombin Time 10.8 sec (9.0-12.0); RDW 12.8 % (11.5-15.5); WBC 9.6 k/uL (3.8-10.6)
[2022-04-25] MEDS: SODIUM CHLORIDE 0.9% 1,000 ML IV SCH (03:49)
[2022-04-25] MEDS: INSULIN ASPART (NovoLOG) 100 UNIT/ML VIAL SQ SCH ×4 (06:39→21:05)
[2022-04-25 06:48] LABS: Glucose,Whole Blood 108 mg/dL (70-110)
[2022-04-25] MEDS: DILTIAZEM CD 180 MG CAP.ER.24H PO SCH (08:25)
[2022-04-25] MEDS: lisinopriL 10 MG TAB PO SCH (08:25)
[2022-04-25] MEDS: FLUoxetine HCL 20 MG CAP PO SCH (08:25)
[2022-04-25] MEDS: NON FORMULARY DRUG (Dapagliflozin Propanediol [Farxiga] 5 MG Tablet) PO SCH (08:26)
[2022-04-25] MEDS ORDERED: HEPARIN SODIUM 1,000 UN/ML (10ML VL) IV PRN (10:23)
[2022-04-25] MEDS ORDERED: HEPARIN SODIUM 1,000 UN/ML (10ML VL) IV ONE (10:23)
[2022-04-25] MEDS ORDERED: HEPARIN SOD,PORK IN 0.45% NACL 25,000 UNIT in 0.45% NACL 1 250ML.BAG IV SCH (10:30)
[2022-04-25] MEDS: HEPARIN SOD,PORK IN 0.45% NACL 25,000 UNIT in 0.45% NACL 1 250ML.BAG IV SCH ×2 (10:31→14:52)
--- NOTE | 2022-04-25 10:55 | P.PN ---
Subjective Progress Note Date: 04/25/22 Principal diagnosis: Pulmonary embolism. Pulmonary and critical care consultation dated 04/24/2022. This is a 66-year-old male who was seen in the emergency department, on April 23. The patient has a history of hypernephroma, status post nephrectomy, 2016, and a prior history of pulmonary embolism, associated with the kidney cancer. The patient presented with complaints of increasing shortness of breath about 2 or 3 days prior to admission to the emergency department. Also, his pulse oximeter was lower than normal, and shortness of breath was noted mostly on exertion. He denied any chest pain or palpitations. There is no fever chills cough or phlegm production. He also denied any trauma or swelling/pain to his lower extremities. A CT angiogram apparently revealed evidence of pulmonary embolism, with right heart strain. This appears to be a unprovoked pulmonary embolism, and the patient's only known trigger, is that he is not particularly active. His kidney cancer is thought not to be active at this time. He has a history of atrial fibrillation, diabetes, hypertension, sleep apnea, and osteoarthritis. In addition, he has a previous history of hypernephroma, with previous nephrectomy. White count 8.5, hemoglobin 15.7, hematocrit 46.2, and platelet c ount 287,000. Sodium 135, potassium 4.5, chlorides 107, CO2 22, anion gap 6, BUN 19, creatinine 1.31. Chest x-ray initially was normal. CT angiogram revealed filling defects within the distal margin of the right main pulmonary artery and secondary and distal branches. There is a filling defect within the very distal margin of the left pulmonary artery and his secondary branches. There was evidence of right ventricular strain. The right ventricular to left ventricular ratio is greater than 1. The patient underwent EKOS this morning. He is currently resting comfortably in the intensive care unit. He is currently on 2 L nasal cannula. He is receiving IV heparin, TPA, and saline at 75 mL an hour. Progress note dated 04/25/2022. The patient is seen today in room 250, in the intensive care unit. The patient has been weaned down to room air. He is getting saline at 75 mL an hour. The patient's also getting heparin via weight based protocol. Hopefully, later today, he'll be started on a factor X a inhibitor. The patient is feeling much better, much less short of breath. The patient will need a follow-up CT angiogram, in about 10-12 weeks, and also, he should follow-up with his oncologist, given his prior history of hypernephroma, and previous history of pulmonary embolism associated with his prior cancer. The patient underwent EKOS on April 24. White count 9.6, he will 14.7, hematocrit 45.8, and platelet count 277,000. Sodium 132, potassium 4.6, chlorides 108, CO2 19, BUN 17, creatinine 1.26. Calcium 8.2. Objective - Vital Signs Vital signs: Vital Signs Temp 98.2 F 04/25/22 08:00 Pulse 61 04/25/22 10:00 Resp 13 04/25/22 10:00 BP 132/68 04/25/22 10:00 Pulse Ox 93 L 04/25/22 10:00 FiO2 Intake & Output 04/24/22 04/25/22 04/25/22 18:59 06:59 18:59 Intake Total 1951.834 889.833 719.996 Output Total 855 1850 275 Balance 1096.834 -960.167 444.996 Weight 142 kg Intake: IV 1050 825 375 Sodium Chloride 0.9% 1, 750 825 150 000 ml @ 75 mls/hr IV . [id number] [facility] Rx#:[id number] Sodium Chloride 0.9% 1, 225 000 ml @ 75 mls/hr IV . [id number] [facility] Rx#:[id number] Intake, IV Titration 901.834 64.833 94.996 Amount Alteplase 10 mg In Sodium 105.167 Chloride 0.9% 90 ml @ 1 MG/HR 10 mls/hr IV .Q10H [facility] Rx#:[id number] Alteplase 10 mg In Sodium 105.333 Chloride 0.9% 90 ml @ 1 MG/HR 10 mls/hr IV .Q10H [facility] Rx#:[id number] Heparin Sod,Pork in 0.45% 30.667 NaCl 25,000 unit In 0.45 % NaCl 1 250ml.bag @ 2.5 mls/hr IV .Q24H [facility] Rx#: [id number] Heparin Sod,Pork in 0.45% 30.667 NaCl 25,000 unit In 0.45 % NaCl 1 250ml.bag @ 2.5 mls/hr IV .Q24H [facility] Rx#: [id number] Heparin Sod,Pork in 0.45% 64.833 94.996 NaCl 25,000 unit In 0.45 % NaCl 1 250ml.bag @ 7. 1174 UNITS/KG/HR 10 mls/ hr IV .Q24H [facility] Rx#: [id number] Sodium Chloride 0.9% 1, 315 000 ml @ 35 mls/hr IV . Q24H [facility] Rx#:[id number] Sodium Chloride 0.9% 1, 315 000 ml @ 35 mls/hr IV . Q24H [facility] Rx#:[id number] Oral 250 Output: Urine 855 1850 275 Other: Voiding Method Toilet # Voids 1 1 # Bowel Movements 1 - Exam No acute distress, oriented 3. Currently on room air, without respiratory distress. Saturations are 93%. HEENT examination is grossly unremarkable. Neck supple. Full range of motion. No adenopathy thyromegaly or neck vein distention. Cardiovascular examination reveals regular rhythm rate. S1-S2 normal. No S3 or S4. No discernible murmur noted. Heart rate 61 bpm. Lungs reveal clear breath sounds. Breath sounds are equal bilaterally. No adventitious lung sounds including wheezes rhonchi or crackles. Abdomen soft bowel sounds are heard. No masses or tenderness. Extremities are intact. No cyanosis clubbing or edema. Skin is without rash or lesion. Neurologic examination is brief but nonfocal. - Labs CBC & Chem 7: 04/25/22 02:55 04/25/22 02:55 Labs: Abnormal Lab Results - Last 24 Hours (Table) 04/24/22 04/24/22 04/25/22 Range/Units 15:25 20:15 02:55 APTT (22.0-30.0) sec Sodium 132 L (137-145) mmol/L Chloride 108 H (98-107) mmol/L Carbon Dioxide 19 L (22-30) mmol/L Creatinine 1.28 H 1.26 H (0.66-1.25) mg/dL Glucose 100 H (74-99) mg/dL POC Glucose (mg/dL) 115 H (70-110) mg/dL Calcium 8.2 L (8.4-10.2) mg/dL 04/25/22 Range/Units 08:47 APTT 34.9 H (22.0-30.0) sec Sodium (137-145) mmol/L Chloride (98-107) mmol/L Carbon Dioxide (22-30) mmol/L Creatinine (0.66-1.25) mg/dL Glucose (74-99) mg/dL POC Glucose (mg/dL) (70-110) mg/dL Calcium (8.4-10.2) mg/dL Assessment and Plan Assessment: Acute bilateral pulmonary embolism, with right heart strain, status post EKOS on 04/24/2022. Prior history of pulmonary embolism, back in 2017, associated with the patient's diagnosis of hypernephroma. History of hypernephroma, status post nephrectomy. History of atrial fibrillation. History of diabetes mellitus. History of hypertension. History of osteoarthritis. History of obstructive sleep apnea syndrome. Plan: Plan dated 04/24/2022. The patient appears to have had a unprovoked blood clot. For that reason, the patient should be treated for at least 6 months. In addition, I think some sort of body scan would be appropriate, whether be a computed tomography scan of the chest abdomen and pelvis, or a PET/CT fusion study. The patient does have a prior history of renal cell carcinoma, status post nephrectomy. Additional recommendations and suggestions are forthcoming. We will continue to follow. We will see the patient in the outpatient setting. He will need a repeat CT an giogram in about 8-10 weeks. Prognosis is guarded. Plan dated 04/25/2022. The patient's doing well. He still remains on IV heparin. Hopefully, later today, they will start a factor X a inhibitor. He should be treated for at least 6 months. Also, he should follow-up with his oncologist, and have either a computed tomography scan of the chest abdomen and pelvis, or a PET/CT fusion study. Additional recommendations and suggestions are forthcoming. Prognosis is guarded. Follow-up CT angiogram in about 10-12 weeks. We will see him once he is discharged. Time with Patient: Less than 30
[2022-04-25 11:31] LABS: Basophils # (A) 0.1 k/uL (0-0.2); Basophils % (A) 1 %; Eosinophils # (A) 0.3 k/uL (0-0.7); Eosinophils % (A) 3 %; HCT 50.7 % (39.0-53.0); HGB 15.9 gm/dL (13.0-17.5); Lymphocytes # (A) 1.8 k/uL (1.0-4.8); Lymphocytes % (A) 20 %; MCH 30.1 pg (25.0-35.0); MCHC 31.5 g/dL (31.0-37.0); MCV 95.5 fL (80.0-100.0); Mean Platelet Volume 9.1; Monocytes # (A) 0.5 k/uL (0-1.0); Monocytes % (A) 5 %; Neutrophils # (A) 6.6 k/uL (1.3-7.7); Neutrophils % (A) 71 %; Platelet Count 216 k/uL (150-450); RDW 12.8 % (11.5-15.5); WBC 9.4 k/uL (3.8-10.6)
[2022-04-25 11:48] LABS: INR 0.9 (<1.2)
--- NOTE | 2022-04-25 11:50 | CA ---
Transthoracic Echo Report Name: Brigido Hernández Age: 66 Gender: M : 1955 Exam Date: 04/25/2022 07:14 Exam Location: [facility] Ht (in): 71 Wt (lb): 309 Ordering Physician: Conchis Muhammad MD Attending/Referring Phys: [facility] Caroline Foreman RDCS Procedure CPT: Indications: Pulmonary Embolism Cardiac Hx: Technical Quality: Fair Contrast 1: Total Dose (mL): Contrast 2: Total Dose (mL): MEASUREMENTS (Male / Female) Normal Values 2D ECHO LV Diastolic Diameter PLAX 4.8 cm 4.2 - 5.9 / 3.9 - 5.3 cm LV Systolic Diameter PLAX 4.0 cm IVS Diastolic Thickness 1.5 cm 0.6 - 1.0 / 0.6 - 0.9 cm LVPW Diastolic Thickness 1.4 cm 0.6 - 1.0 / 0.6 - 0.9 cm LV Relative Wall Thickness 0.6 RV Internal Dim ED PLAX 3.4 cm LA Systolic Diameter LX 3.7 cm 3.0 - 4.0 / 2.7 - 3.8 cm LA Volume 58.6 cm??? 18 - 58 / 22 - 52 cm??? M-MODE Aortic Root Diameter MM 3.7 cm MV E Point Septal Separation 0.3 cm AV Cusp Separation MM 2.5 cm DOPPLER AV Peak Velocity 90.4 cm/s AV Peak Gradient 3.3 mmHg MV Area PHT 3.4 cm??? Mitral E Point Velocity 103.3 cm/s Mitral A Point Velocity 49.3 cm/s Mitral E to A Ratio 2.1 MV Deceleration Time 224.5 ms FINDINGS Left Ventricle Left ventricular ejection fraction is estimated at 55-60%. left ventricular cavity size normal. Moderate concentric left ventricular hypertrophy. Right Ventricle Mild right ventricular dilatation. Unable to estimate the right ventricular systolic pressure. Right ventricle appears to be hypokinetic with sparing of the apex Right Atrium Normal right atrial size. Left Atrium No evidence for an atrial septal defect. Left atrial size at the upper limits of normal. Mitral Valve Structurally normal mitral valve. No mitral stenosis, regurgitation or prolapse. Aortic Valve Trileaflet aortic valve. No aortic valve stenosis or regurgitation. Tricuspid Valve Structurally normal tricuspid valve. No tricuspid stenosis, regurgitation or prolapse. Pulmonic Valve Pulmonic valve not well visualized. Pericardium Normal pericardium. No pericardial effusion. Aorta Normal size aortic root and proximal ascending aorta. CONCLUSIONS 1. Technically difficult study 2. Normal left ventricle size and systolic function 3. Right ventricle mildly dilated with mild hypokinesis, unable to obtain estimation of the right-sided pressure 4. No pericardial effusion Previewed by: Dr. Joy Alves MD (Electronically Signed) Final Date: 25 April 2022 11:50
--- NOTE | 2022-04-25 14:32 | P.PN ---
Subjective Progress Note Date: 04/25/22 This is a 66-year-old male who was recently presenting to the emergency department the past medical history of pulmonary embolism back in 2017 and not currently on any anticoagulation. Patient was having some increasing shortness of breath over the last few days with minimal exertion and continue to progress and came to the emergency department for further evaluation. Patient was on room air and denying any chest pain or palpitations. Patient does have a past medical history of atrial fibrillation, diabetes mellitus, hypertension, osteoarthritis, sleep apnea with a CPAP machine and renal cancer with removal of the right kidney in 2017. Patient reports most of his care has been out of [facility] and follows with Dr. Samia Burrell. Patient had CT of the chest which shows bilateral pulmonary embolisms in the secondary branches and patient was initiated on heparin drip and given a liter of fluid as patient had IV contrast and is only one kidney. There was concern for right ventricular strain on CT. Patient was admitted with intentions of EKOS to the ICU for close monitoring. Chest x-ray on admission showed no acute cardiopulmonary process with no evidence of pleural effusion or focal consolidation or pneumothorax noted. EKG showed sinus rhythm with a heart rate of 79 04/25/2022 Patient is seen and evaluated and follow-up continues to be in the ICU awaiting a stepdown bed as patient has been downgraded. Cardiology and pulmonary following closely and patient is status post EKOS and continues on IV heparin for an additional 24 hours with transition to Eliquis per cardiology. Labs within normal limits today although sodium is mildly low at 132, BUN is 17 and creatinine is 1.26. Patient did receive IV fluids and will discontinue. Patient is eating and drinking and tolerating and recommend continue monitoring Accu-Cheks and use sliding scale as needed. Patient is currently on room air and continues to have some dyspnea with exertion although feels much improved. Patient is currently afebrile and denies any chest pain or shortness of breath. Encourage the patient be up with activity as tolerated and discussion of possible discharge in 24 hours. PHYSICAL EXAMINATION: GENERAL: The patient is alert and oriented x4, Well developed, well nourished. HEENT: Pupils are round and equally reacting to light. EOMI. no scleral icterus. No conjunctival pallor. Normocephalic, atraumatic. No pharyngeal erythema. No thyromegaly. CARDIOVASCULAR: S1 and S2 muffled PULMONARY: diminished breath sounds bilaterally with no wheezing or rhonchi noted. ABDOMEN: soft. Nontender on exam. obese. non-distended, normoactive bowel sounds. No palpable organomegaly. MUSCULOSKELETAL: No joint swelling or deformity. EXTREMITIES: No cyanosis, clubbing, or pedal edema. NEUROLOGICAL: Gross neurological examination did not reveal any focal deficits. SKIN: No rashes. Assessment: Shortness of breath secondary to bilateral pulmonary embolism found on CTA with evidence of right heart strain Status post EKOS Past medical history of renal cell cancer status post right nephrectomy in 2017 at [facility] History of pulmonary embolism in 2017 and not maintained on any anticoagulation Hypertension Hyperlipidemia Morbid obesity with a BMI of 43.2 Diabetes mellitus type 2 History of paroxysmal atrial fibrillation Sleep apnea and uses a CPAP at night Chronic back pain GI prophylaxis DVT prophylaxis Full code Plan: Recommend to continue with current medications and management as patient underwent EKOS for right heart strain noted on CTA with bilateral pulmonary emb olisms in the secondary branches. Recommend ICU management with telemetry monitoring. Patient is a downgrade to the selected unit once a bed becomes available out of the ICU with discussion of possible discharge in 24 hours. Patient is currently sitting up in the chair on room air and denies any worsening dyspnea. Patient does have some dyspnea with minimal exertion although maintaining oxygen saturations above 92%. Encourage increase activity as tolerated and will continue IV heparin for now with cardiology following closely. Plan is for transition to Eliquis in 24 hours and possible discharge. Patient was maintained on IV fluids secondary to receiving IV contrast and is tolerating diet and eating and drinking normally and will discontinue fluids. Commended continue with Accu-Cheks before meals and at bedtime and use sliding scale as needed. Cardiology following and pulmonary following. Possible discharge in 24 hours. The impression and plan of care has been dictated by Johanna Sinclair, nurse practitioner as directed. Dr. Jaja MD I have performed a history and examination and MDM of this patient, discussed the same with the dictator, and agree with the dictator's assessment and plan as written ,documented as a scribe. Based on total visit time, I have performed more than 50% of the visit. Any additional findings or plans will be noted. Objective - Vital Signs Vital signs: Vital Signs Temp 98.2 F 04/25/22 08:00 Pulse 71 07/13/22 09:00 Resp 13 04/25/22 09:00 BP 132/72 04/25/22 09:00 Pulse Ox 92 L 04/25/22 09:00 FiO2 Intake & Output 04/24/22 04/25/22 04/25/22 18:59 06:59 18:59 Intake Total 1951.834 889.833 400 Output Total 855 1850 Balance 1096.834 -960.167 400 Weight 142 kg Intake: IV 1050 825 150 Sodium Chloride 0.9% 1, 750 825 150 000 ml @ 75 mls/hr IV . [id number] [facility] Rx#:[id number] Intake, IV Titration 901.834 64.833 Amount Alteplase 10 mg In Sodium 105.167 Chloride 0.9% 90 ml @ 1 MG/HR 10 mls/hr IV .Q10H [facility] Rx#:[id number] Alteplase 10 mg In Sodium 105.333 Chloride 0.9% 90 ml @ 1 MG/HR 10 mls/hr IV .Q10H [facility] Rx#:[id number] Heparin Sod,Pork in 0.45% 30.667 NaCl 25,000 unit In 0.45 % NaCl 1 250ml.bag @ 2.5 mls/hr IV .Q24H [facility] Rx#: [id number] Heparin Sod,Pork in 0.45% 30.667 NaCl 25,000 unit In 0.45 % NaCl 1 250ml.bag @ 2.5 mls/hr IV .Q24H [facility] Rx#: [id number] Heparin Sod,Pork in 0.45% 64.833 NaCl 25,000 unit In 0.45 % NaCl 1 250ml.bag @ 7. 1174 UNITS/KG/HR 10 mls/ hr IV .Q24H [facility] Rx#: [id number] Sodium Chloride 0.9% 1, 315 000 ml @ 35 mls/hr IV . Q24H [facility] Rx#:[id number] Sodium Chloride 0.9% 1, 315 000 ml @ 35 mls/hr IV . Q24H [facility] Rx#:[id number] Oral 250 Output: Urine 855 1850 Other: Voiding Method Toilet # Voids 1 1 # Bowel Movements 1 - Labs CBC & Chem 7: 04/25/22 08:47 04/25/22 02:55 Labs: Abnormal Lab Results - Last 24 Hours (Table) 04/24/22 04/24/22 04/24/22 Range/Units 09:43 15:25 20:15 APTT (22.0-30.0) sec Sodium 135 L (137-145) mmol/L Chloride (98-107) mmol/L Carbon Dioxide (22-30) mmol/L Creatinine 1.31 H 1.28 H (0.66-1.25) mg/dL Glucose 122 H (74-99) mg/dL POC Glucose (mg/dL) 115 H (70-110) mg/dL Calcium (8.4-10.2) mg/dL 04/25/22 04/25/22 Range/Units 02:55 08:47 APTT 34.9 H (22.0-30.0) sec Sodium 132 L (137-145) mmol/L Chloride 108 H (98-107) mmol/L Carbon Dioxide 19 L (22-30) mmol/L Creatinine 1.26 H (0.66-1.25) mg/dL Glucose 100 H (74-99) mg/dL POC Glucose (mg/dL) (70-110) mg/dL Calcium 8.2 L (8.4-10.2) mg/dL
[2022-04-25 16:33] LABS: Glucose,Whole Blood 97 mg/dL (70-110)
--- NOTE | 2022-04-25 17:44 | P.PN ---
Subjective Progress Note Date: 04/25/22 Principal diagnosis: Unprovoked massive PE In follow-up today patient is not able to report if he has less shortness of breath with activity as he has not been able to be active. He is comfortable at rest. He denies any bleeding. Objective - Vital Signs Vital signs: Vital Signs Temp 98.2 F 04/25/22 08:00 Pulse 61 04/25/22 10:00 Resp 13 04/25/22 10:00 BP 132/68 04/25/22 10:00 Pulse Ox 93 L 04/25/22 10:00 FiO2 Intake & Output 04/24/22 04/25/22 04/25/22 18:59 06:59 18:59 Intake Total 1951.834 889.833 719.996 Output Total 855 1850 275 Balance 1096.834 -960.167 444.996 Weight 142 kg Intake: IV 1050 825 375 Sodium Chloride 0.9% 1, 750 825 150 000 ml @ 75 mls/hr IV . [id number] [facility] Rx#:[id number] Sodium Chloride 0.9% 1, 225 000 ml @ 75 mls/hr IV . [id number] [facility] Rx#:[id number] Intake, IV Titration 901.834 64.833 94.996 Amount Alteplase 10 mg In Sodium 105.167 Chloride 0.9% 90 ml @ 1 MG/HR 10 mls/hr IV .Q10H [facility] Rx#:[id number] Alteplase 10 mg In Sodium 105.333 Chloride 0.9% 90 ml @ 1 MG/HR 10 mls/hr IV .Q10H [facility] Rx#:[id number] Heparin Sod,Pork in 0.45% 30.667 NaCl 25,000 unit In 0.45 % NaCl 1 250ml.bag @ 2.5 mls/hr IV .Q24H [facility] Rx#: [id number] Heparin Sod,Pork in 0.45% 30.667 NaCl 25,000 unit In 0.45 % NaCl 1 250ml.bag @ 2.5 mls/hr IV .Q24H [facility] Rx#: [id number] Heparin Sod,Pork in 0.45% 64.833 94.996 NaCl 25,000 unit In 0.45 % NaCl 1 250ml.bag @ 7. 1174 UNITS/KG/HR 10 mls/ hr IV .Q24H [facility] Rx#: [id number] Sodium Chloride 0.9% 1, 315 000 ml @ 35 mls/hr IV . Q24H [facility] Rx#:[id number] Sodium Chloride 0.9% 1, 315 000 ml @ 35 mls/hr IV . Q24H [facility] Rx#:[id number] Oral 250 Output: Urine 855 1850 275 Other: Voiding Method Toilet # Voids 1 1 # Bowel Movements 1 - Constitutional General appearance: Present: cooperative, morbidly obese, no acute distress - EENT Eyes: Present: anicteric sclerae, EOMI ENT: Present: hearing grossly normal - Respiratory Details: respirations even and unlabored at rest - Neurologic Neurologic: Present: CNII-XII intact (grossly) - Musculoskeletal Musculoskeletal: Present: strength equal bilaterally - Psychiatric Psychiatric: Present: A&O x's 3, appropriate affect, intact judgment & insight - Labs CBC & Chem 7: 04/25/22 08:47 04/25/22 02:55 Labs: Abnormal Lab Results - Last 24 Hours (Table) 04/24/22 04/24/22 04/25/22 Range/Units 15:25 20:15 02:55 APTT (22.0-30.0) sec Sodium 132 L (137-145) mmol/L Chloride 108 H (98-107) mmol/L Carbon Dioxide 19 L (22-30) mmol/L Creatinine 1.28 H 1.26 H (0.66-1.25) mg/dL Glucose 100 H (74-99) mg/dL POC Glucose (mg/dL) 115 H (70-110) mg/dL Calcium 8.2 L (8.4-10.2) mg/dL 04/25/22 Range/Units 08:47 APTT 34.9 H (22.0-30.0) sec Sodium (137-145) mmol/L Chloride (98-107) mmol/L Carbon Dioxide (22-30) mmol/L Creatinine (0.66-1.25) mg/dL Glucose (74-99) mg/dL POC Glucose (mg/dL) (70-110) mg/dL Calcium (8.4-10.2) mg/dL Assessment and Plan (1) Pulmonary embolus Current Visit: Yes Status: Acute Priority: High Code(s): I26.99 - OTHER PULMONARY EMBOLISM WITHOUT ACUTE COR PULMONALE SNOMED Code(s): 44036794 (2) Renal cell adenocarcinoma Current Visit: No Status: Chronic Priority: Medium Code(s): C64.9 - MALIGNANT NEOPLASM OF UNSP KIDNEY, EXCEPT RENAL PELVIS SNOMED Code(s): 799678840 Plan: Unprovoked pulmonary embolism. Previously, patient had a kidney malignancy and presented with extensive pulmonary embolism. Again, patient has no provoking factors for this extensive PE. Concern is for occult malignancy/or recurrence. Physical exam is benign. Pt is reporting some dysphagia, denies ever having an EGD. He has had colonoscopy and reports prostate exams and PSA monitoring. He has received thrombolytics, EKOS and is now on eliquis. Recommendation is for follow-up with Oncologist as soon as possible for evaluation and to move up CT follow up imaging studies for history of kidney cancer, unprovoked PE, worrisome for occult malignancy. Reminded patient to contact his Oncologist to set up appointments [facility]. He verbalized understanding. Note has been CC'd to Dr. Desean Craft.
--- NOTE | 2022-04-25 18:51 | PN ---
PROGRESS NOTE The patient is a gentleman with a pulmonary embolism who had EKOS procedure performed yesterday morning. I will continue IV heparin till tomorrow, then place him on Eliquis with a pulmonary embolism dose and protocol and possible discharge tomorrow evening. His vitals are stable. He is doing well. He feels better. His right groin is clean and dry. S1-S2 heard normally. Heart sounds heard distantly. Lungs reveal improved air entry. Abdomen and lower extremity exam unchanged. IMPRESSION: 1. Acute pulmonary embolism, status post EKOS procedure, doing well. 2. Obstructive sleep apnea, on CPAP. 3. History of renal cell cancer status post right nephrectomy. 4. Hypertension. 5. Hyperlipidemia. RECOMMENDATIONS: Move him to medical floor with telemetry. Continue heparin till tomorrow, switch him to an Eliquis in the morning and possible discharge tomorrow evening or day after morning. MMODL / IJN: [id number] /
[2022-04-25 20:37] LABS: Glucose,Whole Blood 176 mg/dL (70-110)
[2022-04-26 03:17] VITALS: TEMP 98
[2022-04-26] MEDS: HEPARIN SOD,PORK IN 0.45% NACL 25,000 UNIT in 0.45% NACL 1 250ML.BAG IV SCH (04:20)
[2022-04-26 06:43] LABS: Glucose,Whole Blood 108 mg/dL (70-110)
[2022-04-26] MEDS: INSULIN ASPART (NovoLOG) 100 UNIT/ML VIAL SQ SCH (06:43)
[2022-04-26 06:59] LABS: Basophils # (A) 0.1 k/uL (0-0.2); Basophils % (A) 1 %; Eosinophils # (A) 0.4 k/uL (0-0.7); Eosinophils % (A) 4 %; HCT 47.9 % (39.0-53.0); HGB 15.5 gm/dL (13.0-17.5); Lymphocytes # (A) 3.1 k/uL (1.0-4.8); Lymphocytes % (A) 28 %; MCH 30.4 pg (25.0-35.0); MCHC 32.4 g/dL (31.0-37.0); MCV 93.8 fL (80.0-100.0); Mean Platelet Volume 8.8; Monocytes # (A) 0.7 k/uL (0-1.0); Monocytes % (A) 7 %; Neutrophils # (A) 6.6 k/uL (1.3-7.7); Neutrophils % (A) 60 %; Platelet Count 216 k/uL (150-450); RDW 12.7 % (11.5-15.5)
[2022-04-26 08:11] LABS: Calcium 8.7 mg/dL (8.4-10.2); Potassium 4.5 mmol/L (3.5-5.1)
[2022-04-26] MEDS: DILTIAZEM CD 180 MG CAP.ER.24H PO SCH (08:49)
[2022-04-26] MEDS: FLUoxetine HCL 20 MG CAP PO SCH (08:49)
[2022-04-26] MEDS: lisinopriL 10 MG TAB PO SCH (08:49)
[2022-04-26] MEDS: NON FORMULARY DRUG (Dapagliflozin Propanediol [Farxiga] 5 MG Tablet) PO SCH (08:53)
[2022-04-26] MEDS ORDERED: APIXABAN 5 MG TAB PO SCH (09:00)
[2022-04-26 09:27] VITALS: BP 127/73
--- NOTE | 2022-04-26 10:40 | P.PN ---
Subjective Progress Note Date: 04/26/22 Principal diagnosis: Pulmonary embolism. Pulmonary and critical care consultation dated 04/24/2022. This is a 66-year-old male who was seen in the emergency department, on April 23. The patient has a history of hypernephroma, status post nephrectomy, 2016, and a prior history of pulmonary embolism, associated with the kidney cancer. The patient presented with complaints of increasing shortness of breath about 2 or 3 days prior to admission to the emergency department. Also, his pulse oximeter was lower than normal, and shortness of breath was noted mostly on exertion. He denied any chest pain or palpitations. There is no fever chills cough or phlegm production. He also denied any trauma or swelling/pain to his lower extremities. A CT angiogram apparently revealed evidence of pulmonary embolism, with right heart strain. This appears to be a unprovoked pulmonary embolism, and the patient's only known trigger, is that he is not particularly active. His kidney cancer is thought not to be active at this time. He has a history of atrial fibrillation, diabetes, hypertension, sleep apnea, and osteoarthritis. In addition, he has a previous history of hypernephroma, with previous nephrectomy. White count 8.5, hemoglobin 15.7, hematocrit 46.2, and platelet c ount 287,000. Sodium 135, potassium 4.5, chlorides 107, CO2 22, anion gap 6, BUN 19, creatinine 1.31. Chest x-ray initially was normal. CT angiogram revealed filling defects within the distal margin of the right main pulmonary artery and secondary and distal branches. There is a filling defect within the very distal margin of the left pulmonary artery and his secondary branches. There was evidence of right ventricular strain. The right ventricular to left ventricular ratio is greater than 1. The patient underwent EKOS this morning. He is currently resting comfortably in the intensive care unit. He is currently on 2 L nasal cannula. He is receiving IV heparin, TPA, and saline at 75 mL an hour. Progress note dated 04/25/2022. The patient is seen today in room 250, in the intensive care unit. The patient has been weaned down to room air. He is getting saline at 75 mL an hour. The patient's also getting heparin via weight based protocol. Hopefully, later today, he'll be started on a factor X a inhibitor. The patient is feeling much better, much less short of breath. The patient will need a follow-up CT angiogram, in about 10-12 weeks, and also, he should follow-up with his oncologist, given his prior history of hypernephroma, and previous history of pulmonary embolism associated with his prior cancer. The patient underwent EKOS on April 24. White count 9.6, he will 14.7, hematocrit 45.8, and platelet count 277,000. Sodium 132, potassium 4.6, chlorides 108, CO2 19, BUN 17, creatinine 1.26. Calcium 8.2. Progress note dated 04/26/2022. 66-year-old male, seen in room 3, intensive care unit. The patient underwent catheter directed TPA and ultrasonic dissolution of pulmonary embolism, on April 24. The patient is currently on room air. He is getting saline at 20 mL an hour. He still receiving IV heparin. That will be discontinued shortly, and the patient will be started on a factor X a inhibitor. The plan is for discharge home today. The patient will see me in the office in follow-up. He will need a body scan either a computed tomography scan of the abdomen, chest and pelvis, or a PET scan, to rule out active cancer. White count 11, with a no rmal hemoglobin, hematocrit, and platelet count. PTT 76.3. Sodium 136, potassium 4.5, chlorides 109, CO2 20, BUN 13, and creatinine 1.32. Objective - Vital Signs Vital signs: Vital Signs Temp 98 F 04/26/22 02:00 Pulse 62 04/26/22 08:00 Resp 12 04/26/22 08:00 BP 127/73 04/26/22 08:00 Pulse Ox 97 04/26/22 08:00 FiO2 Intake & Output 04/25/22 04/26/22 04/26/22 18:59 06:59 18:59 Intake Total 1400.965 696.249 62.664 Output Total 1050 1875 Balance 350.965 -1178.751 62.664 Weight 139.4 kg Intake: IV 535 180 .9 KVO 120 180 Sodium Chloride 0.9% 1, 150 000 ml @ 75 mls/hr IV . [id number] [facility] Rx#:[id number] Sodium Chloride 0.9% 1, 265 000 ml @ 75 mls/hr IV . [id number] [facility] Rx#:[id number] Intake, IV Titration 215.965 216.249 62.664 Amount Heparin Sod,Pork in 0.45% 120.969 216.249 62.664 NaCl 25,000 unit In 0.45 % NaCl 1 250ml.bag @ 18 UNITS/KG/HR 25.56 mls/hr IV .[id number] [facility] Rx#: [id number] Heparin Sod,Pork in 0.45% 94.996 NaCl 25,000 unit In 0.45 % NaCl 1 250ml.bag @ 7. 1174 UNITS/KG/HR 10 mls/ hr IV .Q24H [facility] Rx#: [id number] Oral 650 300 Output: Urine 1050 1875 Other: Voiding Method Toilet Urinal # Voids 1 # Bowel Movements 1 - Exam No acute distress, oriented 3. Currently on room air, without respiratory distress. Saturations are 97%. HEENT examination is grossly unremarkable. Neck supple. Full range of motion. No adenopathy thyromegaly or neck vein distention. Cardiovascular examination reveals regular rhythm rate. S1-S2 normal. No S3 or S4. No discernible murmur noted. Heart rate 72 bpm. Lungs reveal clear breath sounds. Breath sounds are equal bilaterally. No adventitious lung sounds including wheezes rhonchi or crackles. Abdomen soft bowel sounds are heard. No masses or tenderness. Extremities are intact. No cyanosis clubbing or edema. Skin is without rash or lesion. Neurologic examination is brief but nonfocal. - Labs CBC & Chem 7: 04/26/22 06:26 04/26/22 06:26 Labs: Abnormal Lab Results - Last 24 Hours (Table) 04/25/22 04/25/22 04/25/22 Range/Units 15:24 20:36 23:38 WBC (3.8-10.6) k/uL APTT 70.3 H 41.0 H (22.0-30.0) sec Sodium (137-145) mmol/L Chloride (98-107) mmol/L Carbon Dioxide (22-30) mmol/L Creatinine (0.66-1.25) mg/dL Glucose (74-99) mg/dL POC Glucose (mg/dL) 176 H (70-110) mg/dL 04/26/22 04/26/22 04/26/22 Range/Units 06:26 06:26 06:26 WBC 11.0 H (3.8-10.6) k/uL APTT 76.3 H (22.0-30.0) sec Sodium 136 L (137-145) mmol/L Chloride 109 H (98-107) mmol/L Carbon Dioxide 20 L (22-30) mmol/L Creatinine 1.32 H (0.66-1.25) mg/dL Glucose 108 H (74-99) mg/dL POC Glucose (mg/dL) (70-110) mg/dL Assessment and Plan Assessment: Acute bilateral pulmonary embolism, with right heart strain, status post EKOS on 04/24/2022. Prior history of pulmonary embolism, back in 2017, associated with the patient's diagnosis of hypernephroma. History of hypernephroma, status post nephrectomy. History of atrial fibrillation. History of diabetes mellitus. History of hypertension. History of osteoarthritis. History of obstructive sleep apnea syndrome. Plan: Plan dated 04/24/2022. The patient appears to have had a unprovoked blood clot. For that reason, the patient should be treated for at least 6 months. In addition, I think some sort of body scan would be appropriate, whether be a computed tomography scan of the chest abdomen and pelvis, or a PET/CT fusion study. The patient does have a prior history of renal cell carcinoma, status post nephrectomy. Additional recommendations and suggestions are forthcoming. We will continue to follow. We will see the patient in the outpatient setting. He will need a repeat CT angiogram in about 8-10 weeks. Prognosis is guarded. Plan dated 04/25/2022. The patient's doing well. He still remains on IV heparin. Hopefully, later today, they will start a factor X a inhibitor. He should be treated for at [facility] 6 months. Also, he should follow-up with his oncologist, and have either a computed tomography scan of the chest abdomen and pelvis, or a PET/CT fusion study. Additional recommendations and suggestions are forthcoming. Prognosis is guarded. Follow-up CT angiogram in about 10-12 weeks. We will see him once he is discharged. Plan dated 04/26/2022. The patient's doing well. He remains on IV heparin. He is not receiving any supplemental oxygen. The patient will follow with me in the office. The patient will need some sort of scan, to rule out active cancer. This might include a computed tomography scan of the chest, abdomen, and pelvis or a PET scan. Additional recommendations and suggestions are forthcoming. The patient's IV heparin will be discontinued. He will be started on a factor X a inhibitor. Prognosis is guarded. Time with Patient: Less than 30
[2022-04-26 11:14] LABS: Glucose,Whole Blood 138 mg/dL (70-110)
[2022-04-26 11:26] VITALS: PULSE 61; RESP 9
--- NOTE | 2022-04-26 14:06 | PN ---
PROGRESS NOTE The patient is doing very well this morning he is asymptomatic, resting comfortably. He had bilateral pulmonary embolism. I will discontinue his heparin and start him on Eliquis 10 mg b.i.d. for one week, then 5 mg b.i.d. The patient can be discharged later on today on current medical regimen. I will see him in the office in two weeks. I gave him clear instructions regarding the usage of Eliquis. His primary admitting doctor will discharge him and he also has a physician he sees in the [place] area. Vitals are stable. No JVD. S1-S2 heard normally. Heart sounds heard distantly. Lungs are clear. Abdomen is soft, nontender. Lower extremities reveal palpable pulses. No edema. Central nervous system is normal. MMODL / IJN: [id number] /
== END 2022-04-26 12:39 | disposition home or self-care (01) | DRG 167 ==
LOC: EC 11:42 → 3SCARD 14:09 → 2SICU 18:05
PROVIDERS: ADMIT Hospitalist; ATTEND Hospitalist
PROC: 02FQ3Z0 Fragmentation of Right Pulmonary Artery, Percutaneous Approach, Ultrasonic (ICD-10-PCS; 2022-04-24)
PROC: 02FR3Z0 Fragmentation of Left Pulmonary Artery, Percutaneous Approach, Ultrasonic (ICD-10-PCS; 2022-04-24)
PROC: 3E04317 Introduction of Other Thrombolytic into Central Vein, Percutaneous Approach (ICD-10-PCS; 2022-04-24)
PROC: 3E06317 Introduction of Other Thrombolytic into Central Artery, Percutaneous Approach (ICD-10-PCS; 2022-04-24)
PROC: 4A023N6 Measurement of Cardiac Sampling and Pressure, Right Heart, Percutaneous Approach (ICD-10-PCS; principal; 2022-04-24 10:30)
DX: I26.99 Other pulmonary embolism without acute cor pulmonale (principal); I82.402 Acute embolism and thrombosis of unspecified deep veins of left lower extremity; Z68.41 Body mass index [BMI] 40.0-44.9, adult; Z86.711 Personal history of pulmonary embolism; Z85.528 Personal history of other malignant neoplasm of kidney; Z90.5 Acquired absence of kidney; E11.9 Type 2 diabetes mellitus without complications; G47.33 Obstructive sleep apnea (adult) (pediatric); M19.90 Unspecified osteoarthritis, unspecified site; I10 Essential (primary) hypertension; E66.01 Morbid (severe) obesity due to excess calories; E78.5 Hyperlipidemia, unspecified; G89.29 Other chronic pain; M54.9 Dorsalgia, unspecified; I27.20 Pulmonary hypertension, unspecified; N28.89 Other specified disorders of kidney and ureter; I48.0 Paroxysmal atrial fibrillation; R09.02 Hypoxemia; Z79.01 Long term (current) use of anticoagulants; Z79.899 Other long term (current) drug therapy; Z80.3 Family history of malignant neoplasm of breast; Z82.49 Family history of ischemic heart disease and other diseases of the circulatory system; Z83.3 Family history of diabetes mellitus; Z86.718 Personal history of other venous thrombosis and embolism; Z96.643 Presence of artificial hip joint, bilateral; Z87.19 Personal history of other diseases of the digestive system; Z88.2 Allergy status to sulfonamides; Z88.8 Allergy status to other drugs, medicaments and biological substances
CPT/HCPCS: 36415; 37211; 71046; 71275; 80048; 80053; 82810; 83605; 83880; 84484; 85018; 85025; 85027; 85379; 85384; 85610; 85730; 93005; 93306; 96361; 96374; 99291

== ENCOUNTER 2022-05-01 15:00 | Emergency (ER) | payer MEDICARE ==
--- NOTE | 2022-05-01 16:33 | ED ---
SOB HPI - General Chief Complaint: Shortness of Breath Stated Complaint: Covid Positive,Cough Time Seen by Provider: 05/01/22 15:45 Source: patient Mode of arrival: ambulatory Limitations: no limitations - History of Present Illness Initial Comments: 66-year-old male with past medical history of renal cancer status post nephrectomy, diabetes, A. fib, PE on Eliquis presents to the emergency department with fevers and cough. He was recently hospitalized and diagnosed with bilateral PEs. Patient did undergo EKOS procedure and was placed on Eliquis. He was discharged home and has been taking his medications as directed. On the patient began having a fever and cough. He tested himself on Saturday with a home Covid test and was found to be positive. He has been checking his oxygen saturations which has been anywhere between 90-96%. Denies having shortness of breath. No hemoptysis. Fevers have subsided. Admits to nausea without vomiting. No diarrhea. He made mention to his primary care doctor that he was Covid positive and they recommended he come into the emergency department for chest x-ray. No other alleviating, precipitating or modifying factors - Related Data Home Medications Medication Instructions Recorded Confirmed FLUoxetine HCL [PROzac] 40 mg PO DAILY 09/09/17 04/23/22 dilTIAZem HCL [Diltiazem 24Hr ER 180 mg PO DAILY 09/09/17 04/23/22 (CD)] modafiniL [Provigil] 400 mg PO DAILY PRN 09/09/17 04/23/22 Cholecalciferol (Vitamin D3) 125 mcg PO DAILY 04/23/22 04/23/22 [Vitamin D3 (125 MCG = 5,000 IU)] Dapagliflozin Propanediol [Farxiga] 2.5 mg PO DAILY 04/23/22 04/23/22 lisinopriL [Zestril] 10 mg PO DAILY 04/23/22 04/23/22 Previous Rx's Medication Instructions Recorded Apixaban [Eliquis Starter Pack 5 - 10 mg PO DIRECTED 30 Days 04/24/22 (for VTE)] #1 each Acetaminophen Tab [Tylenol] 650 mg PO Q4HR PRN tab 04/26/22 Allergies Allergy/AdvReac Type Severity Reaction Status Date / Time Sulfa (Sulfonamide Allergy Unknown Verified 05/01/22 15:07 Antibiotics) Childhood atorvastatin AdvReac Muscle pain Verified 05/01/22 15:07 [id number]-[id number]-[id number] Reductase AdvReac Muscle pain Verified 05/01/22 15:07 Inhibitor Review of Systems ROS Statement: Those systems with pertinent positive or pertinent negative responses have been documented in the HPI. ROS Other: All systems not noted in ROS Statement are negative. 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 History of Any Multi-Drug Resistant Organisms: None Reported Past Surgical History: Back Surgery, Heart Catheterization, Joint Replacement, Orthopedic Surgery, Tonsillectomy Additional Past Surgical History / Comment(s): R nephrectomy, bilateral total hip arthroplasties, R knee repair with hardware, R ankle surgery to release tendons, R thumb repair d/t injury, sinus surgery, hemorrhoidectomy. Past Anesthesia/Blood Transfusion Reactions: No Reported Reaction Past Psychological History: No Psychological Hx Reported Smoking Status: Never smoker Past Alcohol Use History: None Reported Past Drug Use History: None Reported - Past Family History Mother Family Medical History: Cancer, Osteoarthritis (OA) Additional Family Medical History / Comment(s): breast cancer-survivor Father Family Medical History: Diabetes Mellitus, Hypertension, Renal Disease Additional Family Medical History / Comment(s): kidney transplant 1983 and lived till 2016 General Exam Limitations: no limitations Course Vital Signs 05/01/22 05/01/22 05/01/22 15:07 15:54 17:13 Temperature 98.3 F 98.4 F Pulse Rate 69 64 Respiratory 18 20 18 Rate Blood Pressure 134/70 133/77 O2 Sat by Pulse 96 97 Oximetry Medical Decision Making - Medical Decision Making Upon arrival the patient was placed into room 13. 0 history and physical exam was performed. Patient is positive for Covid. Chest x-ray demonstrates no acute process. I did discuss the treatment options. Patient refuses antibodies and Paxlovid. He does have a pulse ox at home and therefore will check his pulse ox to ensure that it maintains above 90%. Instructed to return for any new or worsening symptoms. Patient agreed to treatment plan he is discharged home in stable condition - Lab Data Lab Results 05/01/22 Range/Units 16:06 Coronavirus (PCR) Detected A (Not Detectd) Disposition Clinical Impression: COVID-19, Cough Disposition: HOME SELF-CARE Condition: Stable Instructions (If sedation given, give patient instructions): COVID-19 (Coronavirus Disease 2019) (ED) Additional Instructions: Please check your pulse ox at home. Return for any pulse ox less than 90%. Follow-up with your doctor in 2-4 days and return for any new or worsening symptoms Is patient prescribed a controlled substance at d/c from ED?: No Referrals: Nonstaff,Physician [Primary Care Provider] - 1-2 days Time of Disposition: 17:03
--- NOTE | 2022-05-01 16:37 | XR ---
EXAMINATION TYPE: XR chest 2V DATE OF EXAM: 05/01/2022 COMPARISON: 04/23/2022 HISTORY: Cough TECHNIQUE: FINDINGS: Heart is normal. Lungs are clear of infiltrate. No heart failure. Costophrenic angles are c lear. Bony thorax is intact. There is some spurring in the thoracic spine. IMPRESSION: No active cardiopulmonary disease. No change.
[2022-05-01 17:20] VITALS: BP 133/77; PULSE 64; RESP 18; TEMP 98.4
== END 2022-05-01 17:20 | disposition home or self-care (01) ==
LOC: EC 15:00
DX: U07.1 COVID-19 (principal); E11.9 Type 2 diabetes mellitus without complications; I10 Essential (primary) hypertension; I48.0 Paroxysmal atrial fibrillation; M19.90 Unspecified osteoarthritis, unspecified site; Z86.711 Personal history of pulmonary embolism; Z86.718 Personal history of other venous thrombosis and embolism; Z79.01 Long term (current) use of anticoagulants; Z79.899 Other long term (current) drug therapy
CPT/HCPCS: 71046; 87635; 99283

== ENCOUNTER → 2022-05-18 | Outpatient (CLI) | payer MEDICARE ==
--- NOTE | 2022-05-19 12:49 | PE ---
EXAMINATION TYPE: PET CT fusion skull to thigh DATE OF EXAM: 05/18/2022 CLINICAL INDICATION:Male, 66 years old with history of right renal cancer. TECHNIQUE: Following the intravenous administration of 12.3 mCi of F-18 FDG, whole body images are performed from the skull base to the midthigh. Images are reviewed on the computer in the coronal, a xial, and sagittal planes. Reconstructed rotating images are created on independent workstation and reviewed on the computer. A non-contrast CT is performed in conjunction with the PET scan. COMPARISON: CT chest Angio 04/23/2022 and abdomen pelvis 09/02/2017 FINDINGS: SKULL BASE AND NECK: No suspicious FDG activity. CHEST, MEDIASTINUM, AND HILAR REGION: No suspicious FDG activity. ABDOMEN AND PELVIS: The right kidney is surgically absent. No evidence of abnormal FDG uptake. OSSEOUS STRUCTURES: No suspicious FDG activity. OTHER CT: Heterogenous thyroid gland on the right with suspected underlying nodule. Heart is mildly e nlarged for size. No evidence of focal consolidation, pneumothorax or pleural effusion. The right kid karin is surgically absent. Multilevel disc degeneration changes are seen throughout the spine. IMPRESSION: Surgically absent right kidney without evidence for recurrence.
== END | disposition home or self-care (01) ==
LOC: RADPETMAIN 06:59
PROVIDERS: ATTEND Internal Medicine Critical Care Medicine
DX: C64.9 Malignant neoplasm of unspecified kidney, except renal pelvis (principal)
CPT/HCPCS: 78815; A9552

== ENCOUNTER → 2022-07-04 | Outpatient (CLI) | payer MEDICARE ==
--- NOTE | 2022-07-04 15:12 | US ---
EXAMINATION TYPE: US venous doppler duplex LE DATE OF EXAM: 07/04/2022 3:02 PM COMPARISON: US CLINICAL HISTORY: D68.59 HYPERCOAGUABLE STATE. Hypercoagulable state. Hx DVT, PE. Patient on eliquis. SIDE PERFORMED: Bilateral TECHNIQUE: The lower extremity deep venous system is examined utilizing real time linear array sonog elliott with graded compression, doppler sonography and color-flow sonography. VESSELS IMAGED: Common Femoral Vein Deep Femoral Vein Greater Saphenous Vein * Femoral Vein Popliteal Vein Small Saphenous Vein * Proximal Calf Veins (* superficial vessels) Limited due to edema. Right Leg: No evidence of DVT. Left Leg: No evidence of DVT. Complex area seen medial popliteal area: 4.5 x 5.1 x 1.7 cm. IMPRESSION: No evidence of DVT at this time
== END | disposition home or self-care (01) ==
LOC: RADUSWWP 14:17
PROVIDERS: ATTEND Internal Medicine Hematology & Oncology
DX: D68.59 Other primary thrombophilia (principal)
CPT/HCPCS: 93970

== ENCOUNTER → 2024-02-14 | Outpatient (CLI) | payer MEDICARE | END | disposition home or self-care (01) | LOC: LABWHC1 14:35 | PROVIDERS: ATTEND Otolaryngology | DX: Z53.9 Procedure and treatment not carried out, unspecified reason (principal) ==

== ENCOUNTER → 2024-02-14 | Outpatient (CLI) | payer MEDICARE ==
--- NOTE | 2024-02-15 14:17 | CT ---
EXAMINATION TYPE: CT sinus wo con DATE OF EXAM: 02/14/2024 COMPARISON: PET/CT 05/18/2022 HISTORY: CHRONIC MAXILLARY SINUSITIS CT DLP: 760 mGycm CONTRAST: 0 mL of Isovue 300 The paranasal sinuses are examined in the axial plane at 2 mm thick sections. Reconstructed images i n the coronal plane were obtained. The maxillary sinuses are clear. There has been prior ethmoidectomies. The frontal sinuses are clear. The opacified region at the skull base and sphenoid sinus regions appears stable from the PET/CT. Add itional changes are within the right femoral condyle present previously. The septum is evaluated. There is septal deviation to the left. The ostiomeatal units are patent. IMPRESSION: 1. Postsurgical changes within the sinuses likely at the skull base. Findings appear stable over the interval.
== END | disposition home or self-care (01) ==
LOC: RADCTMAIN 14:08
PROVIDERS: ATTEND Otolaryngology
DX: J32.0 Chronic maxillary sinusitis (principal)
CPT/HCPCS: 70486